=== PATIENT | female | born 1950 | race Caucasian/White ===

== ENCOUNTER 2023-10-02 03:47 | Inpatient (IN) | payer MEDICARE, BC, SELFPAY ==
[2023-10-02] VITALS (18 sets, daily range): BP systolic 107–232; BP diastolic 61–129; PULSE 70–108; RESP 12–22; TEMP 36.5–38.1; O2SAT 93–97; BMI 34.3; BMI 34.4
--- NOTE | 2023-10-02 03:37 | XR_ITS ---
PROCEDURE INFORMATION: Exam: XR Chest Exam date and time: 10/02/2023 3:43 AM Age: 73 years old Clinical indication: Injury or trauma; Fall; Additional info: Fall, weakness TECHNIQUE: Imaging protocol: Radiologic exam of the chest. Views: 1 view. COMPARISON: No relevant prior studies available. FINDINGS: Lungs: Unremarkable. No consolidation. Pleural spaces: Unremarkable. No pleural effusion. No pneumothorax. Heart/Mediastinum: Unremarkable. No cardiomegaly. Bones/joints: Unremarkable for age. IMPRESSION: Negative chest exam.
--- NOTE | 2023-10-02 03:37 | XR_ITS ---
PROCEDURE INFORMATION: Exam: XR Pelvis Exam date and time: 10/02/2023 3:43 AM Age: 73 years old Clinical indication: Injury or trauma; Fall; Additional info: Fall, weakness TECHNIQUE: Imaging protocol: Radiologic exam of the pelvis. Views: 1 or 2 view. COMPARISON: No relevant prior studies available. FINDINGS: Limitations: Study is limited due to patient positioning and body habitus. Bones/joints: Unremarkable. No fracture, malalignment or deformity detected. No significant degenerative joint changes. Soft tissues: Unremarkable. IMPRESSION: Limited study. No acute findings.
--- NOTE | 2023-10-02 03:37 | CT_ITS ---
PROCEDURE INFORMATION: Exam: CT Cervical Spine Without Contrast Exam date and time: 10/02/2023 3:57 AM Age: 73 years old Clinical indication: Injury or trauma; Fall; Additional info: Fall, weakness TECHNIQUE: Imaging protocol: Computed tomography of the cervical spine without contrast. Radiation optimization: All CT scans at this facility use at least one of these dose optimization techniques: automated exposure control; mA and/or kV adjustment per patient size (includes targeted exams where dose is matched to clinical indication); or iterative reconstruction. COMPARISON: CT HEAD/BRAIN WO CON 10/02/2023 3:54 AM FINDINGS: Bones/joints: No acute fracture. There is slight grade 1 anterolisthesis of C7 on T1. Otherwise gross anatomic alignment is maintained. There is multilevel advanced degenerative disc disease. There is severe spinal canal stenosis identified at C3-C4, C4-C5, C5-C6, and C6-C7 secondary to diffuse disc osteophyte ridging Lungs: Mild COPD changes are noted. Soft tissues: Unremarkable. IMPRESSION: 1. No evidence of acute fracture. 2. Multilevel severe spinal canal stenosis.
--- NOTE | 2023-10-02 03:37 | CT_ITS ---
PROCEDURE INFORMATION: Exam: CT Head Without Contrast Exam date and time: 10/02/2023 3:54 AM Age: 73 years old Clinical indication: Injury or trauma; Fall; Additional info: Fall, weakness TECHNIQUE: Imaging protocol: Computed tomography of the head without contrast. Radiation optimization: All CT scans at this facility use at least one of these dose optimization techniques: automated exposure control; mA and/or kV adjustment per patient size (includes targeted exams where dose is matched to clinical indication); or iterative reconstruction. COMPARISON: No relevant prior studies available. FINDINGS: Brain: There is mild small vessel disease. There is no evidence of acute parenchymal hemorrhage, extra-axial collection, or acute infarction. There is no mass effect, midline shift, or downward herniation. Cerebral ventricles: No ventriculomegaly. Paranasal sinuses: There is moderate paranasal sinus disease. Mastoid air cells: Visualized mastoid air cells are well aerated. Bones/joints: Unremarkable. No acute fracture. Soft tissues: Unremarkable. IMPRESSION: Mild small vessel disease. No evidence of acute intracranial process.
[2023-10-02 03:47] LABS: Basophils # 0.2 K/mm3 (0-0.2); Basophils % 2.5 % (0.1-2.0); Eosinophils # 0.2 K/mm3 (0.0-0.4); Eosinophils % 2.5 % (0.1-12.0); Hematocrit 42.4 % (37.0-47.0); Lymphocytes # 1.1 K/mm3 (0.7-4.5); Lymphocytes % 15.1 % (10-50); Mean Corpuscular HGB Conc 30.6 g/dL (31.8-35.4); Mean Corpuscular Hemoglobin 30.9 pg (27.0-31.2); Mean Corpuscular Volume 100.8 fl (81-99); Mean Platelet Volume 7.9 fl (7.4-10.4); Monocytes # 0.5 K/mm3 (0.1-1.0); Monocytes % 7.4 % (1.7-9.3); Neutrophils # 5.1 K/mm3 (1.8-7.8); Neutrophils % 72.4 % (37.0-80.0); Platelet Count 325 K/mm3 (142-424); Red Blood Count 4.21 M/mm3 (4.20-5.40); Red Cell Distribution Width 14.8 % (11.5-17.5); White Blood Count 7.1 K/mm3 (4.8-10.8)
--- NOTE | 2023-10-02 04:08 | ED_ITS ---
Discharge Plan Disposition Patient Disposition: Admitted Referrals Follow up/Referrals: Provider,Referral, [Primary Care Provider] - See instructions Clinical Impressions Clinical Impression: Influenza B, Fall, General weakness Discharge ED Provider: Marjorie Wilson General Adult HPI General Chief complaint: Weakness Stated complaint: weakness Time Seen by Provider: 10/02/23 03:53 Mode of Arrival: EMS Source of Information: Patient and EMS Limitations: Physical Limitations Description of Symptoms (Recalled from ER Triage Doc. by RN): Pt arrives to [facility] via [facility] after pts daughter called dispatch for pt not being able to get out of chair. Per EMS, they went to pts house for lift assist at 2am for a fall, when pt fell face first in hallway. Pt refused transfer to ED at that time. Per EMS pt has not left her house in over 1 year, and stopped taking all prescribed medications about 1 year ago. Pt reports recent productive cough with yellow sputum. Upon arrival pt appears unkept with foul odor. EMS reports poor living space. Legs red, dry/scaly, and edematous, excoriation noted in leg and abdominal folds. History of Present Illness HPI narrative: This patient is a 73-year-old female who has not left her house in over a year and has not seen a physician in 25 to 30 years presenting to the emergency department for evaluation with concern for generalized weakness. According to EMS, they were called to the patient's home for a mechanical ground-level fall that happened just after 2 AM. They lifted states that the patient, who refused transport to the hospital. Given this, they left the scene. Family called EMS back to the scene, as they noted that the patient was unable to get up out of her chair after that helped her into it. Family noted to EMS that they were not able to help take care of the patient at home anymore. Given this, EMS brought the patient in for further evaluation and management. Patient denies any concerns or complaints at this time except that she has to pee. EMS notes that the house is very unkempt with concerns for hoarding like situation. The patient also has chronic changes to her bilateral lower extremities with ulcers on her feet, left greater than right. Patient tells me that she had a fall but is feeling fine. She states that she did not hurt herself and she would like to go home. Related Data Allergies Allergy/AdvReac Type Severity Reaction Status Date / Time No Known Allergies Allergy Unverified 09/15/17 15:09 [facility] Disclaimer: The information contained in this section may have been updated after the patient was seen, as this information can be updated by other users. Social History Smoking Status: Never smoker alcohol intake: never current occupational status: previously employed Travel in the last 8 weeks: None ROS Obtained: Yes All systems reviewed & no additional complaints except as docu mented Physical Exam General General appearance: alert and in no apparent distress Comment: Unkempt, disheveled appearing Head Head exam: atraumatic and normocephalic Eye Eye exam: Present normal appearance, PERRL and EOMI ENT ENT exam: Present normal exam, normal oropharynx, mucous membranes moist and normal external ear exam Neck Neck exam: Present normal inspection, full ROM and trachea midline; Absent tenderness Chest Chest inspection: Present normal inspection and symmetric chest wall rise; Absent tenderness Respiratory Respiratory exam: Present normal lung sounds bilaterally; Absent respiratory distress, wheezes, stridor or accessory muscle use Cardiovascular Cardiovascular exam: Present normal rhythm and tachycardia Abdominal Exam Abdominal exam: Present soft; Absent distention, tenderness or guarding Extremities Exam Extremities exam: Present full ROM, normal capillary refill, edema and other (Bilateral lower extremity lymphedema with chronic skin changes to the bilateral legs. Ulcerations to the feet, with a large ulcer to the plantar aspect of the left foot as well as a skin tear to the lateral aspect of the left fifth toe. All compartments soft. No erythema, warmth, or pus noted); Absent tenderness Back Exam Back exam: Present normal inspection and full ROM; Absent tenderness Neurological Exam Neurological exam: Present alert, oriented X3, CN II-XII intact and normal gait; Absent motor sensory deficit Psychiatric Psychiatric exam: Present normal affect and normal mood Skin Skin exam: Present warm, dry and other (chronic changes to BLE as above) Medical Decision Making Medical Records Medical records reviewed: Yes I reviewed the patient's medical records. [place] Inquiry Pt receiving controlled substance: No Vital Signs: 10/02/23 03:36 Temperature 100.5 F H Temperature Source Oral Pulse Rate [Right Radial] 108 H Respiratory Rate 20 Blood Pressure [Right Arm] 160/109 H Blood Pressure Mean [Right Arm] 126 Blood Pressure Source [Right Arm] Automatic Cuff Blood Pressure Position [Right Arm] Supine 02 Sat by Pulse Oximetry 96 Oxygen Delivery Method Room Air Lab Data Lab results reviewed: Yes I reviewed the patient's lab results. Lab Results 10/02/23 03:39: WBC 7.1, RBC 4.21, Hgb 13.0, Hct 42.4, MCV 100.8 H, MCH 30.9, MCHC 30.6 L, RDW 14.8, Plt Count 325, MPV 7.9, Neut % (Auto) 72.4, Lymph % (Auto) 15.1, [place] % (Auto) 7.4, Eos % (Auto) 2.5, Baso % (Auto) 2.5 H, Neut # (Auto) 5.1, Lymph # (Auto) 1.1, [place] # (Auto) 0.5, Eos # (Auto) 0.2, Baso # (Auto) 0.2 10/02/23 04:05: SARS-CoV-2 (PCR) Not detected, Influenza A Untype (PCR) Not detected, Influenza Type B (PCR) Detected A 10/02/23 04:24: Urine Color Yellow, Urine Appearance Clear, Urine pH 6.5, Ur Specific [place] 1.020, Urine Protein 1+, Urine Glucose (UA) Negative, Urine Ketones Negative, Urine Blood 1+, Urine Nitrate Negative, Urine Bilirubin Negative, Urine Urobilinogen 0.2, Ur Leukocyte Esterase Negative, Urine RBC 5- 10, Urine WBC Occasional, Ur Squamous Epith Cells Occasional, Urine Bacteria Trace, Urine Opiates Screen Negative, Urine Methadone Screen Negative, Ur Barbituates Screen Negative, Ur Phencyclidine Scrn Negative, Ur Amphetamines Screen Negative, U Benzodiazepines Scrn Negative, Urine Cocaine Screen Negative, U Marijuana (THC) Screen Negative 10/02/23 04:30: Sodium 136, Potassium 4.0, Chloride 99, Carbon Dioxide 28, Anion Gap 13.0, BUN 14, Creatinine 1.00, Estimated Creat Clear 70, Estimated GFR 54 L, Est GFR ( Amer) 65, Glucose 112 H, Calcium 7.7 L, Phosphorus 2.7, Magnesium 1.8, Total Bilirubin 0.4, AST 38 H, ALT 19, Alkaline Phosphatase 135 H , Total Protein 9.2 H, Albumin 3.5, Globulin 5.7 H, Albumin/Globulin Ratio 0.6 L , TSH 0.32 L, Thyroxine (T4) 5.3 L 10/02/23 03:39 10/02/23 04:30 Orders (Tests/Meds): ED MEDICATIONS Discontinued Medications Generic Name Dose Route Start Last Admin Trade Name Cecy PRN Reason Stop Dose Admin Acetaminophen 1,000 mg 10/02/23 05:18 Acetaminophen 500mg Tab PO 10/02/23 05:19 ONCE ONE Ibuprofen 800 mg 10/02/23 05:18 Ibuprofen 400 Mg Tablet PO 10/02/23 05:19 ONCE ONE ORDERS Category Date Time Status CT cervical spine wo con Stat Cat Scan 10/02/23 03:[address] head/brain wo con Stat Cat Scan 10/02/23 03:37 Taken XR chest portable Stat Exams 10/02/23 03:37 Taken XR pelvis 1-2V Stat Exams 10/02/23 03:37 Taken Complete Blood Count Auto Diff Stat Lab 10/02/23 03:39 Completed Comprehensive Metabolic Panel Stat Lab 10/02/23 04:30 Completed Drug Screen,Urine Stat Lab 10/02/23 04:24 Completed Magnesium Stat Lab 10/02/23 04:30 Completed Phosphorous Stat Lab 10/02/23 04:30 Completed Rapid PCR Covid and Flu A/B Stat Lab 10/02/23 04:05 Completed T4 (Thyroxine) Stat Lab 10/02/23 04:30 Completed Thyroid Stimulating Hormone Stat Lab 10/02/23 04:30 Completed Urinalysis and Microscopic Stat Lab 10/02/23 04:24 Completed ECG Data Tracing #1: I reviewed this ECG and interpreted as documented below: Sinus tachycardia with a ventricular to 101 bpm. Significant motion artifact noted. No acute ST changes concerning for ischemia noted within the limitations of the study. ECG initial impression date: 10/02/23 ECG initial impression time: 04:11 Medical Decision Narrative: In summary, this patient is a 73-year-old female presenting to the Emergency Department for evaluation of generalized weakness and inability to stand after a mechanical ground-level fall that happened just 2 hours ago. Patient has not left her house in a year and lives in deplorable conditions. She has not had any medical care in 25 to 30 years. Differential diagnoses considered include but are not limited to head injury, neck injury, polytrauma, electrolyte derangements, anemia, urinary tract infection, viral syndrome. ruling out the most morbid conditions drove assessment. The patient has no concerns or complaints at this time. On exam, she is disheveled with chronic bilateral lower extremity skin changes and ulcerations. workup included broad lab evaluation including infectious and metabolic workup, CT head and C-spine, chest x-ray, and pelvic x-ray. Her legs do not appear overtly infected to me. I independently interpreted x-ray and CT prior to the radiologist read and noted this acute traumatic injury or other intracranial abnormality. Please see their read for final interpretation. Labs were obtained that demonstrated positive flu B swab. No other acute concerns based on labs. At this time, patient has general weakness and is unable to ambulate in the setting of flu B. She also has a concerning conditions. Given this, I feel she would benefit from admission for continued management. I called and had an interactive discussion with the hospitalist who graciously admitted the patient for further evaluation and management. Critical Care Critical Care Time Critical Care Time: No
[2023-10-02 04:09] LABS: Coronavirus 19, PCR Not Detected (NotDetected); Influenza A, PCR Not Detected (NotDetected)
--- NOTE | 2023-10-02 04:09 | ECG_ITS ---
APPROVED REPORT Exam: Resting ECG HR:101 bpm ECG Measurements Heart Rate 101 AXES WY 140 P 77 QRSd 93 QRS 89 QT 319 T -32 QTc 377 Conclusion SINUS TACHYCARDIA Bi-atrial abnormality ST/TW changes noted - however, artifact limits interpretation ABNORMAL ECG UNCONFIRMED REPORT Electronically signed by : Evelio Mares MD 10/03/2023 10:09:01
[2023-10-02 04:31] LABS: Microscopic, Urine URINE MICROSCOPIC (MICROSCOPIC)
[2023-10-02 04:34] LABS: Appearance,Urine CLEAR (Clear); Bilirubin,Urine Negative (Negative); Blood, Urine 1+ (Negative); Color,Urine YELLOW (Yellow); Glucose,Urine (UA) Negative (Negative); Ketones,Urine Negative (Negative); Leukocyte Esterase,Urine Negative (Negative); Nitrate,Urine Negative (Negative); PH,Urine 6.5 (5.0-8.5); Protein,Urine 1+ (Negative); Urobilinogen,Urine 0.2 EU/dl (0.2)
[2023-10-02 04:39] LABS: Influenza B, PCR Detected (NotDetected)
[2023-10-02 04:50] LABS: Amphetamine/Metha Screen,Urine Negative ng/ml (<1000); Barbiturates Screen,Urine Negative ng/ml (<200); Benzodiazepines Screen,Urine Negative ng/ml (<200); Cannabinoid Screen,Urine Negative ng/ml (<50); Cocaine Screen,Urine Negative ng/ml (<300); Methadone Screen,Urine Negative ng/ml (<300); Opiate Screen,Urine Negative ng/ml (<300); Phencyclidine Screen,Urine Negative ng/ml (<25)
[2023-10-02 04:52] LABS: Bacteria,Urine Trace /lpf; Squamous Epithelial Cell,Urine Occasional #/hpf (0-5); WBC,Urine Occasional #/hpf (0-3)
[2023-10-02 04:56] LABS: Chloride 99 mmol/L (98-107)
[2023-10-02 04:57] LABS: Sodium 136 mmol/L (136-145)
[2023-10-02 04:59] LABS: Alanine Aminotransferase 19 U/L (12-78); Albumin Level 3.5 g/dl (3.5-5.0); Albumin/Globulin Ratio 0.6 (1.1-1.8); Alkaline Phosphatase 135 U/L (38-126); Aspartate Amino Transferase 38 U/L (14-36); Bilirubin,Total 0.4 mg/dl (0.2-1.3); Blood Urea Nitrogen 14 mg/dl (7-17); Carbon Dioxide 28 mmol/L (22.0-30.0); Creatinine Clearance Estimated 70 mL/min (50-200); Estimated Glomerular Filt Rate 54 ml/min (>60); GFR (African American) 65 ML/MIN (>60); Globulin 5.7 g/dL (1.3-3.2); Magnesium 1.8 mg/dl (1.6-2.3); Phosphorous 2.7 mg/dl (2.5-4.5); Total Protein,Serum 9.2 g/dl (6.3-8.2)
[2023-10-02 05:00] LABS: Calcium 7.7 mg/dl (8.4-10.2); Glucose 112 mg/dl (74-100)
[2023-10-02 05:17] LABS: T4 (Thyroxine) 5.3 ug/dl (5.53-11.0)
--- NOTE | 2023-10-02 05:28 | PC.NURSE ---
a bed bug was found on the patient when she was being cathed for a urine sample, bed bug was collected in a specimen cup and sent to lab for confirmation. Patients clothes were then removed and placed into bags and placed outside of the ED.
--- NOTE | 2023-10-02 05:29 | PC.NURSE ---
ovens supervisor notified of admission for flu and generalized weakness. Pt to board in ED at this time.
[2023-10-02 05:31] LABS: Thyroid Stimulating Hormone 0.32 uIU/mL (0.465-4.68)
[2023-10-02] MEDS: ACETAMINOPHEN 500MG TAB 1000 MG PO (05:43)
[2023-10-02] MEDS: IBUPROFEN 400 MG TABLET 800 MG PO (05:43)
--- NOTE | 2023-10-02 05:48 | P.HP_ITS ---
History of Present Illness *Admission Date: 10/02/23 *Reason for visit:: fall, generalized weakness *History of present illness: This is a 73-year-old female with unknown medical history, apparently on no home medication, concerned poor medical care, brought to the emergency department fo r evaluation of generalized weakness and fall. Patient is poor historian and [place]. History obtained mainly for ED documentation and EMS report. According to EMS, they were called to the patient's home for a mechanical ground-level fall that happened just after 2 AM. They lifted states that the patient, who refused transport to the hospital. Given this, they left the scene. Family called EMS back to the scene, as they noted that the patient was unable to get up out of her chair after that helped her into it, and they were not able to help take care of the patient at home anymore. EMS notes that the house is very unkempt with concerns for hoarding like situation. The patient also has chronic lymphedema to her bilateral lower extremities with ulcers on her feet, left greater than right. She states that she did not hurt herself and she would like to go home. Admitted for further work up and management. [facility] Disclaimer: The information contained in this section may have been updated after the patient was seen, as this information can be updated by other users. Social History (Updated 10/02/23 @ 05:43 by Marjorie Wilson DO) Smoking Status: Never smoker alcohol intake: never current occupational status: previously employed Travel in the last 8 weeks: None Review of Systems Review of Systems Review of systems:: pertinent systems reviewed and negative unless documented below Meds Home Medications and Allergies New Prescriptions to Start Prescriptions: Allergies Allergy/AdvReac Type Severity Reaction Status Date / Time No Known Allergies Allergy Unverified 09/15/17 15:09 Exam Data for Last 24 hours Vital signs and Labs for Last 24 Hours: Temp Pulse Resp BP Pulse Ox O2 Del Method 100.5 F H 108 H 20 160/109 H 96 Room Air 10/02/23 03:36 10/02/23 03:36 10/02/23 03:36 10/02/23 03:36 10/02/23 03:36 10/02/23 03:36 Laboratory Results - last 24 hr 10/02/23 03:39: WBC 7.1, RBC 4.21, Hgb 13.0, Hct 42.4, MCV 100.8 H, MCH 30.9, MCHC 30.6 L, RDW 14.8, Plt Count 325, MPV 7.9, Neut % (Auto) 72.4, Lymph % (Auto) 15.1, [place] % (Auto) 7.4, Eos % (Auto) 2.5, Baso % (Auto) 2.5 H, Neut # (Auto) 5.1, Lymph # (Auto) 1.1, [place] # (Auto) 0.5, Eos # (Auto) 0.2, Baso # (Auto) 0.2 10/02/23 04:05: SARS-CoV-2 (PCR) Not detected, Influenza A Untype (PCR) Not detected, Influenza Type B (PCR) Detected A 10/02/23 04:24: Urine Color Yellow, Urine Appearance Clear, Urine pH 6.5, Ur Specific [place] 1.020, Urine Protein 1+, Urine Glucose (UA) Negative, Urine Ketones Negative, Urine Blood 1+, Urine Nitrate Negative, Urine Bilirubin Negative, Urine Urobilinogen 0.2, Ur Leukocyte Esterase Negative, Urine RBC 5- 10, Urine WBC Occasional, Ur Squamous Epith Cells Occasional, Urine Bacteria Trace, Urine Opiates Screen Negative, Urine Methadone Screen Negative, Ur Barbituates Screen Negative, Ur Phencyclidine Scrn Negative, Ur Amphetamines Screen Negative, U Benzodiazepines Scrn Negative, Urine Cocaine Screen Negative, U Marijuana (THC) Screen Negative 10/02/23 04:30: Sodium 136, Potassium 4.0, Chloride 99, Carbon Dioxide 28, Anion Gap 13.0, BUN 14, Creatinine 1.00, Estimated Creat Clear 70, Estimated GFR 54 L, Est GFR ( Amer) 65, Glucose 112 H, Calcium 7.7 L, Phosphorus 2.7, Magnesium 1.8, Total Bilirubin 0.4, AST 38 H, ALT 19, Alkaline Phosphatase 135 H , Total Protein 9.2 H, Albumin 3.5, Globulin 5.7 H, Albumin/Globulin Ratio 0.6 L , TSH 0.32 L, Thyroxine (T4) 5.3 L I & O for Last 24 hours: Intake & Output 09/29/23 09/30/23 10/01/23 10/02/23 23:59 23:59 23:59 23:59 Weight 90.718 kg Constitutional Constitutional: mild distress and cooperative *Routine HEENT Exam Head: Present normocephalic and atraumatic Eye: Present EOMI, PERRL and normal accommodation ENT: Present mucous membranes moist *Routine Neck Exam Neck: Present supple, full ROM and trachea midline *Routine Respiratory Exam Respiratory: Present normal respiratory effort, able to speak in complete sentences and symmetric chest movement; Absent respiratory distress *Routine Cardiovascular Exam Cardiovascular: Present RRR, Normal S1, Normal S2 and tachycardia *Routine Abdominal Exam Abdominal: Present soft and normoactive bowel sounds; Absent organomegaly *Routine Rectal Exam Rectal:: deferred *Routine Genitalia Exam Genitalia:: deferred *Routine Extremities Exam Extremities: Present edema, pulses intact and extremity cold to touch; Absent full ROM Comments: chronic lymphedema *Routine Skin Exam Skin: Present erythema, dry, warm, wounds and rash *Routine Neurological Exam Neurological: Present alert, motor deficit, normal reflexes, moving all extremities and normal speech Routine Psychiatric Exam Psychiatric: Present unable to assess H&P: Result Imaging and Cardiology EKG: Status: image reviewed by me and final report CT scan - head: Status: image reviewed by me, Preliminary report and final report Chest x-ray: Status: image reviewed by me and Preliminary report Pelvis xray : Status: image reviewed by me and Preliminary report Assessment and Plan *Assessment and plan (1) Influenza B: Status: Acute Category: Medical Code(s): J10.1 - Influenza due to other identified influenza virus with other respiratory manifestations (2) Fall: Status: Acute Qualifiers: Encounter type: initial encounter Qualified Code(s): W19.XXXA - Unspecified fall, initial encounter Category: Medical Code(s): W19.XXXA - Unspecified fall, initial encounter (3) General weakness: Status: Acute Category: Medical Code(s): R53.1 - Weakness (4) Lymphedema: Status: Acute Category: Medical Code(s): I89.0 - Lymphedema, not elsewhere classified (5) Unable to care for self: Status: Acute Category: Medical Code(s): Z78.9 - Other specified health status Plan 3-year-old female with unknown medical history, apparently on no home medication, concerned poor medical care, brought to the emergency department for evaluation of generalized weakness and fall. On arrival, CT of the head was obtained, there is negative for acute intracranial process, CTA of the cervical spine showing, with stenosis. Pelvic x-ray and chest x-ray pending for final radiology report. Labs are unremarkable. Patient found to be positive to influenza B. Currently asymptomatic. findings discussed with the ER. I agree for admission. Plan: -Generalized weakness, expected post for home no apparent injury: Admit patient for medical services. Start continuous monitoring Vital signs per unit protocol PT OT consult. For eval and treat No family available at bedside at this moment. Nursing to contact family for reconcile home meds if there are any Watch and repeat morning labs. Watch for electrolyte imbalance -Influenza B: Currently asymptomatic Monitor for fever and sepsis Negative for O2 saturation -Chronic bilateral lower extremity lymphedema : Wound care consult Assess for lymphedema wrap and lac-hydrin -unable to care for herself: general store manager consult. Assist with discharge plan Lovenox for DVT prophylaxis. Protonix Full code
--- NOTE | 2023-10-02 06:13 | PC.NURSE ---
Pt put in hospital bed at this time. Pt turned on left side, no other needs at this time
[2023-10-02] MEDS: 0.9 % SODIUM CHLORIDE 1000ML 1,000 ML 50 ML IV (06:17)
--- NOTE | 2023-10-02 06:33 | PC.NURSE ---
Multiple skin issues noted. Bilat legs red, scaly edematous. Excoriation noted to abdominal and leg folds. Stage 2 pressure wound noted to right buttock. Ulcer noted to bottom of left foot.
--- NOTE | 2023-10-02 07:31 | PC.NURSE ---
ROUNDED ON PT. RESTING WITH EYES CLOSED. AWAKENS EASILY. DENIES NEEDS AT THIS TIME. CALL LIGHT WITHIN REACH. RESPIRATIONS EVEN AND UNLABORED
--- NOTE | 2023-10-02 08:39 | PC.NURSE ---
ROUNDED ON PT. NO NEEDS AT THIS TIME. CALL LIGHT WITHIN REACH
--- NOTE | 2023-10-02 08:59 | PC.NURSE ---
PT/OT AT BEDSIDE FOR EVALUATION
--- NOTE | 2023-10-02 09:33 | SW/DCPLANNER ---
Addendum entered by [facility] 10/05/23 12:12: Lalit w/ [facility] stated that services will start this week for this patient. Addendum entered by [facility] 10/05/23 11:48: Daughter confirmed that [facility] is fine for this patient and follow up w/ Dr Ortiz. Patient's daughter is also fine w/ using [facility] for DME. Addendum entered by [facility] 10/05/23 09:30: Daughter is fine w/ [facility]. Daughter has also requested a bedside commode and a rolling walker. Addendum entered by [facility] 10/05/23 09:23: I spoke w/ patient's daughter regarding discharge plans. Daughter stated that the plan for this patient is to discharge home w/ her son (Priyank) and home health services. Patient/family are no longer interested in placement at this time. I have updated MD. Patient will discharge home this afternoon. Addendum entered by [facility] 10/02/23 14:43: Gifty w/ [facility] stated that she is able to accept this patient but not till Thursday due to being flu positive. [facility] is still reviewing referral. Addendum entered by [facility] 10/02/23 12:43: Patient's daughter is agreeable for information to be faxed to [facility] at this time. Original Note: I received a consult on this patient regarding plans once medically stable for discharge. PT/OT evaluated patient and recommended SNF level of care. I spoke w/ patient and her daughter (patient is very hard of hearing) regarding situation. Daughter stated that prior to late last night when patient fell she was doing well at home. Daughter stated that since fall patient is unable to ambulate on her own. I discussed w/ daughter the options of SNF (if patient has a qualifying stay) or LTC under Medicaid. Daughter did become emotional during conversation due to struggling financially and if going Medicaid patient payment will be monthly include aside from $40. Daughter requested additional time to speak w/ other family members regarding situation. I informed daughter I would be back around lunch to further discuss discharge plans. I also informed daughter that patient does have to be agreeable to placement.
--- NOTE | 2023-10-02 09:55 | HMH.PTEV ---
Physical Therapy Evaluation Rehab PT IP Evaluation Start: 10/02/23 05:47 Freq: ONCE Status: Active Protocol: Document 10/02/23 09:41 JAQUAN (Rec: 10/02/23 09:53 JAQUAN [id number]) Subjective/History History History Patient is a 73 year old female presenting to [facility] ED secondary to generalized weakness resulting in a mechanical fall at home. Patient reports R shoulder pain. Patient reports that she was previously ambulatory about the home and independent with IADL's. Suspect possible poor living conditions per ED/EMS documentation. Severe BLE swelling/lymphedema L>R. Patient to have CLT/CWS consult. Patient has not been seen by primary care or taken any medications over the past year per ED MD report. Patient currently positive for flu. Subjective Subjective I fell and my right shoulder hurts. New diagnosis of cancer in past 12 No months? Rehab PT IP Eval Objective Appearance Patient Behavior Appropriate,Cooperative Patient Orientation Person,Place,Birthday Difficulty following instructions none Speech Pattern Clear,Appropriate Ambulation Patient Able to Ambulate Yes Ambulation Observation IP General Gait Pattern Observation Wide Based Gait Ambulation Distance (feet) 5 Ambulation Assistive Device Rolling Walker Ambulation Ability Minimal x 2 (25% assist) Balance Ability to Arise Unable Sitting Balance Leans or slides in chair Standing Balance Steady, wide stance Dynamic Sitting Balance Ability Fair Dynamic Standing Balance Ability Fair Transfers Bed Transfer Ability Minimal x 2 (25% assist) Sit to Stand Bed Transfer Ability Minimal x 2 (25% assist) Pain Right Shoulder Pain Intensity 5 ROM All Extremities PT ROM Status WFL MMT All Extremities PT MMT WFL Rehab PT IP prob,goals,plan Problems Date of Evaluation: 10/02/23 PT IP Problems Bed Mobility,Transfers,Gait, Balance,Self care,Safety Rehab Potential Rehab Potential Good Equipment Needs Assistive Devices Rolling / Wheeled Walker Plan PT Intervention Plan Bed Mobility,Transfers,Gait, Balance,Self care,Safety, Therapeutic Exercise PT Plan Frequency BID Duration LOS Discharge Goals Bed Transfer Ability Minimal x 1 (25% assist) Sit to Stand Chair Transfer Ability Minimal x 1 (25% assist) Ambulation Assistive Device Rolling Walker Ambulation Distance (feet) 20 Discharge Plan PT Discharge Plan PT suggests, once found medically stable by MD, patient should DC to SNF for further observation and to continue with rehab. Eval Complexity Eval Charge Codes 97342 - High Complexity PHYSICIAN CERTIFICATION: I certify the specified therapy services for Pushpa Sol Schneider are required, authorized, and reviewed every 30 days.
[2023-10-02] MEDS: PANTOPRAZOLE 40MG TABLET 40 MG PO (09:59)
[2023-10-02] MEDS: ENOXAPARIN 40MG/0.4ML SYRINGE 40 MG SQ (09:59)
--- NOTE | 2023-10-02 10:20 | PC.NURSE ---
WOUND CARE AT BEDSIDE
--- NOTE | 2023-10-02 10:30 | HMH.OTEV ---
OT Inpatient Evaluation Rehab OT IP Evaluation Start: 10/02/23 05:47 Freq: ONCE Status: Active Protocol: Document 10/02/23 10:14 FRED (Rec: 10/02/23 10:30 FRED [id number]) Rehab OT IP Assessment Subjective History This is a 73-year-old female with unknown medical history, apparently on no home medication, concerned poor medical care, brought to the emergency department for evaluation of generalized weakness and fall. Patient is poor historian and [place]. History obtained mainly for ED documentation and EMS report. According to EMS, they were called to the patient's home for a mechanical ground-level fall that happened just after 2 AM. They lifted states that the patient, who refused transport to the hospital. Given this, they left the scene. Family called EMS back to the scene, as they noted that the patient was unable to get up out of her chair after that helped her into it, and they were not able to help take care of the patient at home anymore. EMS notes that the house is very unkempt with concerns for hoarding like situation. The patient also has chronic lymphedema to her bilateral lower extremities with ulcers on her feet, left greater than right. She states that she did not hurt herself and she would like to go home . Admitted for further work up and management. Per nursing, Patient lives at home with daughter. Patient has not seen health care provided in years nor has taken home medication >1 year. Hx of falling. Per nuring family reported that daughter can no longer provide for her due to weakness. Subjective I can get up. Instructed Patient on proper hand and foot placement to participate in bed mobility from supine->sit @ EOB->stand- >ambulates 2-3 steps with needing Min A with usage of RW . Patient demonstrated fair+ dynamic standing balance. Assisted Patient back in bed due to incontinent episodes. Objective Patient Orientation Person,Place,Name,Age,Birthday ,Year Right Upper Extremity Gross ROM WFL Left Upper Extremity Gross ROM WFL Bed Mobility bed mobility - supine/sit Assist Level Minimal x 1 (25% assist) Transfer Training Sit/Stand Transfer,Sit/Stand/ Step Transfer Assist Level Minimal x 1 (25% assist) Chair Transfer Ability Minimal x 1 (25% assist) Chair Transfer Technique Sit to/from Ambulatory Chair Transfer Assistive Devices Rolling Walker Rehab OT IP prob,goals,plan Problems Date of Evaluation: 10/02/23 OT IP Problems Bed Mobility,Transfers,Balance ,Self care,Safety Rehab Potential Rehab Potential Good Equipment Needs Assistive Devices Rolling / Wheeled Walker Plan OT intervention Plan Bed Mobility,Transfers,Balance ,Self care,Safety,Therapeutic Exercise OT Plan Frequency Daily Duration LOS Discharge Goals Bed Mobility Ability Assistance x1 Sit to Stand Chair Transfer Ability Minimal x 1 (25% assist) Chair Transfer Ability Minimal x 1 (25% assist) Chair Transfer Technique Sit to/from Ambulatory Chair Transfer Assistive Devices Rolling Walker Discharge Plan OT Discharge Plan Due to health condition and family members unable to continue to provide care for patient , recommend placement at this time. Patient will required 20/04 care for ADL, wound care and fx'l mobility. Will continue to see patient at [facility]. Eval Complexity Eval Charge Codes 24575 - Low Complexity PHYSICIAN CERTIFICATION: I certify the specified therapy services for Pushpa Schneider are required, authorized, and reviewed every 30 days.
--- NOTE | 2023-10-02 11:16 | HMH.PTWOUND ---
Rehab Inpt Wound Evaluation Rehab IP Wound Evaluation Start: 10/02/23 07:34 Freq: ONCE Status: Active Protocol: Document 10/02/23 11:07 GWENDOLYN (Rec: 10/02/23 11:16 PHONADYA [id number]) Rehab PT Wound Assessment Subjective Subjective 73 yowf brought to ED via EMS after fall at home. She has hx of underlying B LE chronic lymphedema, L worse than R. Several areas of excoriation noted to the L LE this date with considerable dry skin and hyperkeratosis noted. Wound Left Lower Leg Wound Type Stasis Ulcer Is This a Chronic Wound Yes Wound Length (cm) 3.0 Wound Width (cm) 0.5 Wound Depth (cm) 0.1 Wound Bed Appearance [place] Wound Margins Description Indistinct Surrounding Tissue Appearance [place],Bright Red Edema Type Pitting Edema Degree 2+ Query Text:1+ Trace, Barely Detectable, Rebound 15-30 seconds 2+ Moderate, Slight Indentation, Rebound 10-20 seconds 3+ Deep, Deeper Indentation, Rebound > 30 seconds 4+ Very Deep, Rebound > 60 seconds Wound Drainage Description Sanguineous Drainage Amount Scant Dressing Status Open to Air Wound Topical Solution/Irrigant Saline Irrigant Primary Dressing Unna Boot Comment 2 layer calamine compression wrap system Wound Debridement Method Gauze,Mechanical Wound Debridement Amount of Tissue Minimal Removed Dressing Change Patient Tolerance Tolerated Well Plan/Recommendation Comment Current dressing may remain in place for at least 3-4 days without being disturbed. [facility] staff to monitor dressing only and no dressing changes needed unless current dressing is required to be removed. Eval Complexity Eval Charge Codes 89257 - High Complexity PHYSICIAN CERTIFICATION: I certify the specified therapy services for Pushpa Schneider are required, authorized, and reviewed every 30 days.
--- NOTE | 2023-10-02 11:33 | PC.NURSE ---
PT RESTING IN BED, FAMILY AT BEDSIDE. NO NEEDS AT THIS TIME
--- NOTE | 2023-10-02 11:38 | PC.NURSE ---
Notified house that pt's room was ready, pt's RN has called for report and tech notified that patient is ready to come up.
--- NOTE | 2023-10-02 11:43 | PC.NURSE ---
REPORT GIVEN TO MARCO SAMUELS
--- NOTE | 2023-10-02 11:56 | PC.NURSE ---
arrived to floor by bed from ED
--- NOTE | 2023-10-02 12:41 | HMH.PHAINT1 ---
Pharmacy Intervention Comments: Spoke with patient at bedside, patient confirm no maintenance medications at home prior to admission and only takes Tylenol as needed.
--- NOTE | 2023-10-02 15:02 | PC.WOUNDNOTE ---
STAGE 2 AND REDNESS NOTED TO THE BUTTOCKS
[2023-10-03] VITALS: BP 145/87; PULSE 76; RESP 16; TEMP 37.1; O2SAT 95
[2023-10-03 04:00] VITALS: BP 155/84; PULSE 77; RESP 16; TEMP 37.2; O2SAT 95; BMI 33.9
[2023-10-03 07:01] LABS: Alanine Aminotransferase 19 U/L (12-78); Albumin/Globulin Ratio 0.6 (1.1-1.8); Alkaline Phosphatase 100 U/L (38-126); Aspartate Amino Transferase 44 U/L (14-36); Bilirubin,Total 0.2 mg/dl (0.2-1.3); Blood Urea Nitrogen 18 mg/dl (7-17); Calcium 7.4 mg/dl (8.4-10.2); Carbon Dioxide 31 mmol/L (22.0-30.0); Chloride 105 mmol/L (98-107); Creatinine Clearance Estimated 46 mL/min (50-200); Estimated Glomerular Filt Rate 34 ml/min (>60); GFR (African American) 41 ML/MIN (>60); Glucose 96 mg/dl (74-100); Sodium 137 mmol/L (136-145)
[2023-10-03 07:11] LABS: Basophils % 0.5 % (0.1-2.0); Eosinophils # 0.2 K/mm3 (0.0-0.4); Eosinophils % 5.3 % (0.1-12.0); Hemoglobin 12.9 g/dL (12.2-16.2); Lymphocytes # 0.7 K/mm3 (0.7-4.5); Lymphocytes % 16.9 % (10-50); Mean Corpuscular HGB Conc 30.7 g/dL (31.8-35.4); Mean Corpuscular Hemoglobin 30.5 pg (27.0-31.2); Mean Corpuscular Volume 99.4 fl (81-99); Mean Platelet Volume 7.5 fl (7.4-10.4); Monocytes # 0.3 K/mm3 (0.1-1.0); Monocytes % 6.9 % (1.7-9.3); Neutrophils # 2.7 K/mm3 (1.8-7.8); Neutrophils % 70.3 % (37.0-80.0); Platelet Count 282 K/mm3 (142-424); Red Blood Count 4.22 M/mm3 (4.20-5.40); Red Cell Distribution Width 14.6 % (11.5-17.5); White Blood Count 3.9 K/mm3 (4.8-10.8)
[2023-10-03 08:00] VITALS: BP 160/72; PULSE 80; RESP 18; TEMP 36.9; O2SAT 93
[2023-10-03] MEDS: ENOXAPARIN 40MG/0.4ML SYRINGE 40 MG SQ (09:04)
[2023-10-03] MEDS: PANTOPRAZOLE 40MG TABLET 40 MG PO (09:04)
--- NOTE | 2023-10-03 09:17 | XR_ITS ---
PROCEDURE INFORMATION: Exam: XR Right Shoulder Exam date and time: 10/03/2023 9:53 AM Age: 73 years old Clinical indication: Numbness; Arm, upper; Right; Additional info: Pain TECHNIQUE: Imaging protocol: Radiologic exam of the right shoulder. Views: 1 view. Total images: 1 COMPARISON: CR XR HUMERUS RT 10/03/2023 9:53 AM FINDINGS: Bones/joints: Degenerative changes of the glenohumeral and acromioclavicular joints. No evidence of acute fracture or dislocation. Soft tissues: Soft tissues are within normal limits. IMPRESSION: 1. Degenerative changes of the glenohumeral and acromioclavicular joints. 2. No evidence of acute fracture or dislocation.
--- NOTE | 2023-10-03 09:17 | XR_ITS ---
PROCEDURE INFORMATION: Exam: XR Right Humerus Exam date and time: 10/03/2023 9:53 AM Age: 73 years old Clinical indication: Numbness; Arm, upper; Right; Additional info: Pain TECHNIQUE: Imaging protocol: Radiologic exam of the right humerus. Views: 2 or more views. Total images: 2 COMPARISON: CR XR SHOULDER RT 1V 10/03/2023 9:53 AM FINDINGS: Bones/joints: Degenerative changes of the glenohumeral and acromioclavicular joints. No evidence of acute fracture or dislocation. Soft tissues: Soft tissues are within normal limits. IMPRESSION: 1. Degenerative changes of the glenohumeral and acromioclavicular joints. 2. No evidence of acute fracture or dislocation.
--- NOTE | 2023-10-03 15:22 | EXP.PN ---
Subjective *Date: 10/03/23 *Time: 15:22 Interval history: patient was seen and evaluated at the bedside. No reported acute events overnight, denies chest pain, shortness of breath, nausea, vomiting, abdominal pain. Exam Data for Last 24 hours Vital signs and Labs for Last 24 Hours: Temp Pulse Resp BP Pulse Ox O2 Del Method O2 Flow Rate 98.4 F 80 18 160/72 H 93 L Room Air 3 10/03/23 08:00 10/03/23 08:00 10/03/23 08:00 10/03/23 08:00 10/03/23 08:00 10/03/23 15:00 10/03/23 09:00 Laboratory Results - last 24 hr 10/03/23 06:26: WBC 3.9 L D, RBC 4.22, Hgb 12.9, Hct 42.0, MCV 99.4 H, MCH 30.5, MCHC 30.7 L, RDW 14.6, Plt Count 282, MPV 7.5, Neut % (Auto) 70.3, Lymph % (Auto) 16.9, [place] % (Auto) 6.9, Eos % (Auto) 5.3, Baso % (Auto) 0.5, Neut # (Auto) 2.7, Lymph # (Auto) 0.7, [place] # (Auto) 0.3, Eos # (Auto) 0.2, Baso # (Auto) 0.0, Sodium 137, Potassium 4.0, Chloride 105, Carbon Dioxide 31 H, Anion Gap 5.0, BUN 18 H D, Creatinine 1.50 H D, Estimated Creat Clear 46, Estimated GFR 34 L, Est GFR ( Amer) 41 L D, Glucose 96, Calcium 7.4 L, Magnesium 2.0 D, Total Bilirubin 0.2, AST 44 H, ALT 19, Alkaline Phosphatase 100, Total Protein 8.0, Albumin 3.0 L D, Globulin 5.0 H, Albumin/Globulin Ratio 0.6 L I & O for Last 24 hours: Intake & Output 09/30/23 10/01/23 10/02/23 10/03/23 23:59 23:59 23:59 23:59 Intake Total 480 / 720 960 / 960 Output Total 350 / 350 600 / 600 Balance 130 / 370 360 / 360 Weight 90.86 kg 90.174 kg Constitutional Constitutional: no acute distress *Routine HEENT Exam Head: Present normocephalic Eye: Present EOMI and PERRL ENT: Present mucous membranes moist *Routine Neck Exam Neck: Present supple; Absent lymphadenopathy *Routine Respiratory Exam Respiratory: Present CTA bilaterally *Routine Cardiovascular Exam Cardiovascular: Present RRR *Routine Abdominal Exam Abdominal: Present soft and normoactive bowel sounds; Absent tenderness *Routine Extremities Exam Extremities: Absent cyanosis, clubbing or edema *Routine Skin Exam Skin: Present warm; Absent rash *Routine Neurological Exam Neurological: Present alert and oriented X3 Assessment and Plan *Assessment and plan (1) Influenza B: Status: Acute Category: Medical Code(s): J10.1 - Influenza due to other identified influenza virus with other respiratory manifestations (2) Fall: Status: Acute Qualifiers: Encounter type: initial encounter Qualified Code(s): W19.XXXA - Unspecified fall, initial encounter Category: Medical Code(s): W19.XXXA - Unspecified fall, initial encounter (3) General weakness: Status: Acute Category: Medical Code(s): R53.1 - Weakness (4) Lymphedema: Status: Acute Category: Medical Code(s): I89.0 - Lymphedema, not elsewhere classified (5) Unable to care for self: Status: Acute Category: Medical Code(s): Z78.9 - Other specified health status Plan 3-year-old female with unknown medical history, apparently on no home medication, concerned poor medical care, brought to the emergency department for evaluation of generalized weakness and fall. On arrival, CT of the head was obtained, there is negative for acute intracranial process, CTA of the cervical spine showing, with stenosis. Pelvic x-ray and chest x-ray pending for final radiology report. Labs are unremarkable. Patient found to be positive to influenza B. Currently asymptomatic. findings discussed with the ER. I agree for admission. Plan: -Generalized weakness Start continuous monitoring Vital signs per unit protocol PT OT consult. For eval and treat No family available at bedside at this moment. Nursing to contact family for reconcile home meds if there are any Watch and repeat morning labs. Watch for electrolyte imbalance HAI - gentle IV fluid therapy -Influenza B: Currently asymptomatic Monitor for fever and sepsis Negative for O2 saturation -Chronic bilateral lower extremity lymphedema : Wound care consult Assess for lymphedema wrap and lac-hydrin -unable to care for herself: environmental services project manager consult. Assist with discharge plan Heparin for DVT prophylaxis. Protonix Full code
[2023-10-03 15:45] VITALS: BP 160/77; PULSE 78; RESP 18; TEMP 36.8; O2SAT 92
[2023-10-03] MEDS: 0.9 % SODIUM CHLORIDE 1000ML 1,000 ML 75 ML IV (16:38)
--- NOTE | 2023-10-03 17:05 | PC.NURSE ---
PT IS RESTING IN BED WITH FAMILY AT BEDSIDE. ALERT AND ORIENTED X3. PT IS VERY [place]. PT HAS BEEN COMPLAINING OF SOME NUMBNESS AND PAIN IN HER RIGHT ARM. PT STATES SHE THOUGHT IT WAS B/C SHE P FELL ON IT. PT IS ABLE TO MOVE RIGHT SHOULDER BUT UNABLE TO LIFT RIGHT ARM INDEPENDENTLY. ASSESSED WITH HOSPITALIST AT BEDSIDE. SWELLING NOTED TO BLE. UNNA BOOT NOTED TO THE LLE. SCATTERED ABRASIONS NOTED. STAGE 2 AND REDNESS NOTED TO BUTTOCKS. REDNESS NOTED TO LEFT ABDOMINAL FOLD. WILL CONTINUE TO MONITOR.
[2023-10-03 20:00] VITALS: BP 146/75; PULSE 87; RESP 17; TEMP 36.8; O2SAT 94
[2023-10-03] MEDS: HEPARIN SODIUM 5,000 UNIT/ML VIAL 5000 UNIT SQ (20:31)
--- NOTE | 2023-10-04 03:08 | PC.NURSE ---
RESTING IN BED. NO RESP DISTRESS. NO COUGH NOTED. NO COMPLAINTS VOICED. PUREWICK IN USE, URINE DALIA COLOR. REMAINS IN DROPLET/CONTACT PRECAUTIONS FOR FLU B.
[2023-10-04 04:00] VITALS: BP 152/81; PULSE 76; RESP 17; TEMP 36.8; O2SAT 92; BMI 33.9
[2023-10-04] MEDS: 0.9 % SODIUM CHLORIDE 1000ML 1,000 ML 75 ML IV (04:48)
[2023-10-04 08:00] VITALS: BP 168/99; PULSE 82; RESP 20; TEMP 36.7; O2SAT 94
[2023-10-04] MEDS: HEPARIN SODIUM 5,000 UNIT/ML VIAL 5000 UNIT SQ ×2 (08:48→21:16)
[2023-10-04] MEDS: PANTOPRAZOLE 40MG TABLET 40 MG PO (08:49)
[2023-10-04] MEDS: ACETAMINOPHEN 325MG TAB 650 MG PO (08:53)
--- NOTE | 2023-10-04 10:59 | CT_ITS ---
PROCEDURE INFORMATION: Exam: CT Head Without Contrast Exam date and time: 10/04/2023 12:46 PM Age: 73 years old Clinical indication: Weakness, extremity; Additional info: CVA TECHNIQUE: Imaging protocol: Computed tomography of the head without contrast. Total images: 273 Radiation optimization: All CT scans at this facility use at least one of these dose optimization techniques: automated exposure control; mA and/or kV adjustment per patient size (includes targeted exams where dose is matched to clinical indication); or iterative reconstruction. COMPARISON: CT HEAD/BRAIN WO CON 10/02/2023 3:54 AM FINDINGS: Brain: Age-related atrophy and chronic white matter ischemic changes, with no evidence of an acute intracranial abnormality. No hemorrhage, mass effect or midline shift. Cerebral ventricles: No ventriculomegaly. Paranasal sinuses: Bilateral maxillary sinusitis. Ethmoid sinusitis and sphenoid sinusitis present. Mastoid air cells: Visualized mastoid air cells are well aerated. Bones/joints: No acute fracture. Soft tissues: No acute changes IMPRESSION: 1. Age-related atrophy and chronic white matter ischemic changes, with no evidence of an acute intracranial abnormality. 2. No hemorrhage, mass effect or midline shift. 3. Bilateral maxillary sinusitis. 4. Ethmoid sinusitis and sphenoid sinusitis present.
--- NOTE | 2023-10-04 10:59 | CT_ITS ---
PROCEDURE INFORMATION: Exam: CTA Head With Contrast, Venography Exam date and time: 10/04/2023 12:49 PM Age: 73 years old Clinical indication: Paralysis, transient of limb; Additional info: CVA TECHNIQUE: Imaging protocol: Computed tomography angiography of the head with contrast. Exam focused on the veins. 3D rendering (Not supervised by radiologist): MIP and/or 3D reconstructed images were created by the technologist. Radiation optimization: All CT scans at this facility use at least one of these dose optimization techniques: automated exposure control; mA and/or kV adjustment per patient size (includes targeted exams where dose is matched to clinical indication); or iterative reconstruction. Contrast material: ISOVUE; Contrast volume: 100 ml; Contrast route: INTRAVENOUS (IV); COMPARISON: CT HEAD/BRAIN WO CON 10/04/2023 12:46 PM FINDINGS: Superior sagittal sinus: Patent. Straight sinus: Patent. Transverse sinuses: Patent. Sigmoid sinuses: Patent. Internal jugular veins: Limited visualized internal jugular veins are patent. POSTERIOR CIRCULATION: Left vertebral artery: Hypoplastic left vertebral artery V4 segment, normal congenital variant anatomy. No abrupt vessel cutoff. No aneurysm or significant stenosis. Basilar artery: Unremarkable. Brain: No definite mass, mass effect, or midline shift. Cerebral ventricles: No ventriculomegaly. Paranasal sinuses: Diffuse mucosal thickening throughout the paranasal sinuses with air-fluid level in the right maxillary sinus compatible with sinusitis. Soft tissues: Unremarkable. IMPRESSION: No evidence of critical stenosis, occlusion, or aneurysm in the intracranial cerebral arteries. PROCEDURE INFORMATION: Exam: CT Maxillofacial With Contrast Exam date and time: 10/04/2023 12:49 PM Age: 73 years old Clinical indication: Paralysis, transient of limb; Additional info: CVA TECHNIQUE: Imaging protocol: Computed tomography of the face with contrast. COMPARISON: CT HEAD/BRAIN WO CON 10/04/2023 12:46 PM FINDINGS: Orbital cavities: Orbits are normal. Globes are unremarkable. Bones/joints: No evidence of acute fracture. Bilateral temporomandibular joints are congruent. Pterygoid plates are intact. Paranasal sinuses: Diffuse mucosal thickening throughout the paranasal sinuses and air-fluid level in the right maxillary sinus compatible with sinusitis. Soft tissues: Unremarkable. IMPRESSION: Diffuse mucosal thickening throughout the paranasal sinuses with air-fluid level in the right maxillary sinus compatible with sinusitis.
[2023-10-04 11:16] VITALS: BP 147/86; PULSE 81; RESP 18; TEMP 36.7; O2SAT 93
[2023-10-04] MEDS: ASPIRIN EC 81MG TABLET 81 MG PO (11:51)
[2023-10-04] MEDS: 0.9 % SODIUM CHLORIDE 1000ML 250 ML 200 ML IV (14:02)
--- NOTE | 2023-10-04 15:03 | P.PN_ITS ---
Subjective *Date: 10/04/23 *Time: 15:03 Interval history: patient was seen and evaluated at the bedside. No reported acute events overnight, denies chest pain, shortness of breath, nausea, vomiting, abdominal pain. she has weakness in Left arm Exam Data for Last 24 hours Vital signs and Labs for Last 24 Hours: Temp Pulse Resp BP Pulse Ox O2 Del Method O2 Flow Rate 98.0 F 81 18 147/86 H 93 L Room Air 3 10/04/23 11:16 10/04/23 11:16 10/04/23 11:16 10/04/23 11:16 10/04/23 11:16 10/04/23 14:45 10/03/23 09:00 I & O for Last 24 hours: Intake & Output 10/01/23 10/02/23 10/03/23 10/04/23 23:59 23:59 23:59 23:59 Intake Total 480 / 720 1200 / 1761 1341 / 1341 Output Total 350 / 350 1700 / 1800 900 / 900 Balance 130 / 370 -500 / -39 441 / 441 Weight 90.86 kg 90.174 kg 90.175 kg Constitutional Constitutional: no acute distress *Routine HEENT Exam Head: Present normocephalic Eye: Present EOMI and PERRL ENT: Present mucous membranes moist *Routine Neck Exam Neck: Present supple; Absent lymphadenopathy *Routine Respiratory Exam Respiratory: Present CTA bilaterally *Routine Cardiovascular Exam Cardiovascular: Present RRR *Routine Abdominal Exam Abdominal: Present soft and normoactive bowel sounds; Absent tenderness *Routine Extremities Exam Extremities: Absent cyanosis, clubbing or edema *Routine Skin Exam Skin: Present warm; Absent rash *Routine Neurological Exam Neurological: Present alert and oriented X3 Comments: has weakness in Left arm, Sensation to touch intact bilaterally. R arm has intact strength Assessment and Plan *Assessment and plan (1) Influenza B: Status: Acute Category: Medical Code(s): J10.1 - Influenza due to other identified influenza virus with other respiratory manifestations (2) Fall: Status: Acute Qualifiers: Encounter type: initial encounter Qualified Code(s): W19.XXXA - Unspecified fall, initial encounter Category: Medical Code(s): W19.XXXA - Unspecified fall, initial encounter (3) General weakness: Status: Acute Category: Medical Code(s): R53.1 - Weakness (4) Lymphedema: Status: Acute Category: Medical Code(s): I89.0 - Lymphedema, not elsewhere classified (5) Unable to care for self: Status: Acute Category: Medical Code(s): Z78.9 - Other specified health status Plan 3-year-old female with unknown medical history, apparently on no home medication, concerned poor medical care, brought to the emergency department for evaluation of generalized weakness and fall. On arrival, CT of the head was obtained, there is negative for acute intracranial process, CTA of the cervical spine showing, with stenosis. Pelvic x-ray and chest x-ray pending for final radiology report. Labs are unremarkable. Patient found to be positive to influenza B. Currently asymptomatic. findings discussed with the ER. I agree for admission. Plan: -Generalized weakness Start continuous monitoring Vital signs per unit protocol PT OT consult. For eval and treat No family available at bedside at this moment. Nursing to contact family for reconcile home meds if there are any Watch and repeat morning labs. Watch for electrolyte imbalance R arm weakness, suspect CVA - CT head and CTA Head and neck - negative for acute process ASA, Statin MRI brain ordered HAI - gentle IV fluid therapy -Influenza B: Currently asymptomatic Monitor for fever and sepsis Negative for O2 saturation -Chronic bilateral lower extremity lymphedema : Wound care consult Assess for lymphedema wrap and lac-hydrin -unable to care for herself: automotive general manager consult. Assist with discharge plan Heparin for DVT prophylaxis. Protonix Full code CVA work up, order Carotid US
--- NOTE | 2023-10-04 15:11 | PC.NURSE ---
PT IS SITTING UP IN THE CHAIR. ALERT AND ORIENTED X4. EATING AND DRINKING WELL. PT CONTINUES TO HAVE WEAKNESS IN HER RIGHT ARM HOWEVER HAS MORE ROM THAN SHE DID YESTERDAY. LUNG SOUNDS CLEAR. ABDOMEN SOFT/NON TENDER WITH ACTIVE BOWEL SOUNDS. BLE EDEMA NOTED. UNNA BOOT NOTED TO THE LLE. SCATTERED ABRASIONS. STAGE 2 AND REDNESS NOTED TO THE BUTTOCKS. WILL CONTINUE TO MONITOR.
[2023-10-04 16:00] VITALS: BP 153/70; PULSE 75; RESP 20; TEMP 36.8; O2SAT 98
[2023-10-04 20:00] VITALS: BP 127/71; PULSE 72; RESP 17; TEMP 36.6; O2SAT 93
[2023-10-04] MEDS: ATORVASTATIN 40MG TABLET 40 MG PO (21:16)
[2023-10-05] MEDS: 0.9 % SODIUM CHLORIDE 1000ML 1,000 ML 75 ML IV (01:25)
[2023-10-05 04:00] VITALS: BP 165/82; PULSE 76; RESP 17; TEMP 36.1; O2SAT 97; BMI 33.9
--- NOTE | 2023-10-05 05:19 | PC.NURSE ---
Patient has had a decent night tonight. Has slept most of the shift. Patient was comfortable in the chair and refused to turn or change positions. Patient has been up to the bedside x3 times to void. Patient tolerated it okay with a full 1 assist to help with the transfer. patient remains on room air and AxO
--- NOTE | 2023-10-05 07:35 | MR_ITS ---
FINAL REPORT CLINICAL HISTORY: CVA COMPARISON: None FINDINGS: Multiplanar MR imaging of the brain was performed without contrast. There is mild age-appropriate atrophy. There are scattered foci of increased T2 signal in the cerebral white matter that have a nonspecific appearance but likely represent mild chronic ischemic/gliotic changes. There is no evidence of intracranial hemorrhage or mass. No abnormal ventricular dilatation is identified. No abnormal extra-axial fluid collection is seen. No abnormality is seen on the diffusion weighted images. The posterior fossa and brainstem are unremarkable. Normal major vessel vascular flow voids are seen. There is widespread sinus mucosal thickening. IMPRESSION: Age-appropriate atrophy and mild chronic ischemic/gliotic changes. No acute intracranial abnormality. Reviewed, Interpreted and Dictated by Grady Clark III, MD Transcribed by Carey Key Authenticated and [facility]
[2023-10-05 08:00] VITALS: BP 184/85; PULSE 85; RESP 16; TEMP 36.4; O2SAT 96
--- NOTE | 2023-10-05 08:40 | PC.NURSE ---
Patient down with radiology staff for MRI
[2023-10-05] MEDS: HEPARIN SODIUM 5,000 UNIT/ML VIAL 5000 UNIT SQ (10:00)
[2023-10-05] MEDS: PANTOPRAZOLE 40MG TABLET 40 MG PO (10:00)
[2023-10-05] MEDS: ASPIRIN EC 81MG TABLET 81 MG PO (10:00)
[2023-10-05 10:35] LABS: Basophils % 0.4 % (0.1-2.0); Eosinophils # 0.6 K/mm3 (0.0-0.4); Eosinophils % 9.9 % (0.1-12.0); Hematocrit 38.9 % (37.0-47.0); Hemoglobin 12.5 g/dL (12.2-16.2); Lymphocytes # 1.1 K/mm3 (0.7-4.5); Mean Corpuscular Hemoglobin 31.5 pg (27.0-31.2); Mean Corpuscular Volume 98.5 fl (81-99); Mean Platelet Volume 8.5 fl (7.4-10.4); Monocytes # 0.3 K/mm3 (0.1-1.0); Monocytes % 4.7 % (1.7-9.3); Neutrophils # 3.7 K/mm3 (1.8-7.8); Platelet Count 253 K/mm3 (142-424); Red Blood Count 3.95 M/mm3 (4.20-5.40); Red Cell Distribution Width 14.9 % (11.5-17.5); White Blood Count 5.6 K/mm3 (4.8-10.8)
[2023-10-05 10:39] LABS: Chloride 107 mmol/L (98-107); Sodium 141 mmol/L (136-145)
[2023-10-05 10:40] LABS: Potassium 4.1 mmoL/L (3.5-5.1)
[2023-10-05 10:42] LABS: Alanine Aminotransferase 68 U/L (12-78); Albumin Level 3.4 g/dl (3.5-5.0); Albumin/Globulin Ratio 0.7 (1.1-1.8); Alkaline Phosphatase 136 U/L (38-126); Anion Gap 9.1 mEq/L (5-15); Aspartate Amino Transferase 167 U/L (14-36); Bilirubin,Total 0.4 mg/dl (0.2-1.3); Blood Urea Nitrogen 20 mg/dl (7-17); Carbon Dioxide 29 mmol/L (22.0-30.0); Creatinine Clearance Estimated 63 mL/min (50-200); Estimated Glomerular Filt Rate 48 ml/min (>60); GFR (African American) 59 ML/MIN (>60); Globulin 5.1 g/dL (1.3-3.2); Total Protein,Serum 8.5 g/dl (6.3-8.2)
[2023-10-05 10:43] LABS: Calcium 7.9 mg/dl (8.4-10.2); Glucose 99 mg/dl (74-100)
--- NOTE | 2023-10-05 13:24 | EXP.DC.SUM ---
General Admission date:: 10/03/23 Discharge date: 10/05/23 HPI HPI HPI: This is a 73-year-old female with unknown medical history, apparently on no home medication, concerned poor medical care, brought to the emergency department for evaluation of generalized weakness and fall. Patient is poor historian and [place]. History obtained mainly for ED documentation and EMS report. According to EMS, they were called to the patient's home for a mechanical ground-level fall that happened just after 2 AM. They lifted states that the patient, who refused transport to the hospital. Given this, they left the scene. Family called EMS back to the scene, as they noted that the patient was unable to get up out of her chair after that helped her into it, and they were not able to help take care of the patient at home anymore. EMS notes that the house is very unkempt with concerns for hoarding like situation. The patient also has chronic lymphedema to her bilateral lower extremities with ulcers on her feet, left greater than right. She states that she did not hurt herself and she would like to go home. Admitted for further work up and management. Hospital Course Hospital Course Hospital Course: Patient was seen and evaluated at the bedside on the day of discharge. Patient is stable for discharge. Patient wishes to be discharged. All patient questions were answered and patient was given time to ask questions. Patient was discharged in stable condition. Patient understands that she can return to ER in case of any sudden changes in health. Total time spent on DC - 38 mins 73-year-old female with unknown medical history, apparently on no home medication, concerned poor medical care, brought to the emergency department for evaluation of generalized weakness and fall. On arrival, CT of the head was obtained, there is negative for acute intracranial process, CTA of the cervical spine showing, with stenosis. Pelvic x-ray and chest x-ray pending for final radiology report. Labs are unremarkable. Patient found to be positive to influenza B. Currently asymptomatic. findings discussed with the ER. I agree for admission. Plan: -Generalized weakness Start continuous monitoring Vital signs per unit protocol PT OT consult. For eval and treat No family available at bedside at this moment. Nursing to contact family for reconcile home meds if there are any Watch and repeat morning labs. Watch for electrolyte imbalance R arm weakness, suspect CVA - CT head and CTA Head and neck - negative for acute process ASA, Statin MRI brain ordered - negative for CVA, CVA ruled out, dc asa, statin HAI - gentle IV fluid therapy -Influenza B: Currently asymptomatic Monitor for fever and sepsis Negative for O2 saturation -Chronic bilateral lower extremity lymphedema : Wound care consult Assess for lymphedema wrap and lac-hydrin -unable to care for herself: cyber workforce developer and manager consult. Assist with discharge plan Heparin for DVT prophylaxis. Protonix Full code Exam Data for Last 24 hours Vital signs and Labs for Last 24 Hours: Temp Pulse Resp BP Pulse Ox O2 Del Method O2 Flow Rate 97.5 F L 85 16 184/85 H 96 Room Air 3 10/05/23 08:00 10/05/23 08:00 10/05/23 08:00 10/05/23 08:00 10/05/23 08:00 10/05/23 11:32 10/03/23 09:00 Laboratory Results - last 24 hr 10/05/23 10:25: WBC 5.6 D, RBC 3.95 L, Hgb 12.5, Hct 38.9, MCV 98.5, MCH 31.5 H, MCHC 32.0, RDW 14.9, Plt Count 253, MPV 8.5, Neut % (Auto) 65.0, Lymph % (Auto) 20.0, [place] % (Auto) 4.7, Eos % (Auto) 9.9, Baso % (Auto) 0.4, Neut # (Auto) 3.7, Lymph # (Auto) 1.1, [place] # (Auto) 0.3, Eos # (Auto) 0.6 H, Baso # (Auto) 0.0, Sodium 141, Potassium 4.1, Chloride 107, Carbon Dioxide 29, Anion Gap 9.1, BUN 20 H, Creatinine 1.10 H D, Estimated Creat Clear 63, Estimated GFR 48 L, Est GFR ( Amer) 59 D, Glucose 99, Calcium 7.9 L, Total Bilirubin 0.4, AST 167 H D, ALT 68 D, Alkaline Phosphatase 136 H, Total Protein 8.5 H, Albumin 3.4 L, Globulin 5.1 H, Albumin/Globulin Ratio 0.7 L I & O for Last 24 hours: Intake & Output 10/02/23 10/03/23 10/04/23 10/05/23 23:59 23:59 23:59 23:59 Intake Total 480 / 720 1200 / 1761 2729 / 2729 1540 / 1540 Output Total 350 / 350 1700 / 1800 900 / 900 0 / 0 Balance 130 / 370 -500 / -39 1829 / 1829 1540 / 1540 Weight 90.86 kg 90.174 kg 90.175 kg 90.178 kg Constitutional Constitutional: no acute distress *Routine HEENT Exam Head: Present normocephalic Eye: Present EOMI and PERRL ENT: Present mucous membranes moist *Routine Neck Exam Neck: Present supple; Absent lymphadenopathy *Routine Respiratory Exam Respiratory: Present CTA bilaterally *Routine Cardiovascular Exam Cardiovascular: Present RRR *Routine Abdominal Exam Abdominal: Present soft and normoactive bowel sounds; Absent tenderness *Routine Extremities Exam Extremities: Absent cyanosis, clubbing or edema *Routine Skin Exam Skin: Present warm; Absent rash *Routine Neurological Exam Neurological: Present alert and oriented X3 Comments: has weakness in Left arm, Sensation to touch intact bilaterally. R arm has intact strength Results Data Completed and Pending Labs on day of discharge: Labs from last 24 hours 10/05/23 10:25 WBC 5.6 D RBC 3.95 L Hgb 12.5 Hct 38.9 MCV 98.5 MCH 31.5 H MCHC 32.0 RDW 14.9 Plt Count 253 MPV 8.5 Neut % (Auto) 65.0 Lymph % (Auto) 20.0 [place] % (Auto) 4.7 Eos % (Auto) 9.9 Baso % (Auto) 0.4 Neut # (Auto) 3.7 Lymph # (Auto) 1.1 [place] # (Auto) 0.3 Eos # (Auto) 0.6 H Baso # (Auto) 0.0 Sodium 141 Potassium 4.1 Chloride 107 Carbon Dioxide 29 Anion Gap 9.1 BUN 20 H Creatinine 1.10 H D Estimated Creat Clear 63 Estimated GFR 48 L Est GFR ( Amer) 59 D Glucose 99 Calcium 7.9 L Total Bilirubin 0.4 AST 167 H D ALT 68 D Alkaline Phosphatase 136 H Total Protein 8.5 H Albumin 3.4 L Globulin 5.1 H Albumin/Globulin Ratio 0.7 L DS: Diagnosis Discharge Diagnosis (1) Influenza B: Status: Acute Code(s): J10.1 - Influenza due to other identified influenza virus with other respiratory manifestations (2) Fall: Status: Acute Code(s): W19.XXXA - Unspecified fall, initial encounter Qualifiers: Encounter type: initial encounter Qualified Code(s): W19.XXXA - Unspecified fall, initial encounter (3) General weakness: Status: Acute Code(s): R53.1 - Weakness (4) Lymphedema: Status: Acute Code(s): I89.0 - Lymphedema, not elsewhere classified (5) Unable to care for self: Status: Acute Code(s): Z78.9 - Other specified health status Meds Home Medications and Allergies Home Medications Medication Instructions Recorded Confirmed Type acetaminophen 500 mg tablet 500 mg PO Q6HP PRN Pain 10/02/23 10/02/23 History New Prescriptions to Start Prescriptions: Allergies Allergy/AdvReac Type Severity Reaction Status Date / Time No Known Allergies Allergy Unverified 09/15/17 15:09 Discharge Plan Disposition Patient Disposition: Home Health Service Condition: Good Discharge Order Discharge Orders: Discharge Order (Routine); Ordered 10/05/23 Ordered By: Natali Graves Follow up Plan Follow up with: Srinath Ortiz DO [Staff Physician] - 10/13/23 3:30 pm Prescriptions/Medication Reconciliation: Continued acetaminophen 500 mg Tablet 500 mg PO Q6HP PRN (Reason: Pain) Other Ambulatory Orders: Home Medical Equipment (Routine) Location: None Selected Ordered By: Natali Graves Problem Reconciliation Problems Reviewed?: Yes Patient Discharge Instructions ACTIVITY: Up with assistance DIET: advance to your usual diet Additional Instructions: follow up with your PCP and Home health regarding your R arm weakness Patient Instructions: DI for Influenza -- Adult, How to Prevent Falls, DI for Lymphedema, DI for Muscle Weakness Providers Primary Care Provider: Provider,Referral Admit Provider: Natali Graves Attending Provider: Natali Graves
--- NOTE | 2023-10-05 15:09 | CA_ITS ---
FINAL REPORT TECHNIQUE: Color Doppler, duplex Doppler and mcdaniel scale sonography of the bilateral neck arterial vasculature was performed. Velocities were measured in the carotid arteries. Stenosis evaluation based on the validated velocity criteria. CLINICAL HISTORY: CVA COMPARISON: None FINDINGS: The peak systolic velocity of the right common carotid artery is 81 cm/s. The peak systolic velocity of the right internal carotid artery is 89 cm/s and end diastolic velocity 30 cm/s. The ICA/CCA ratio is 1.2. A mild amount of plaque is present. The right external carotid artery is patent. The right vertebral artery is patent with antegrade flow. The peak systolic velocity of the left common carotid artery is 88 cm/s. The peak systolic velocity of the left internal carotid artery is 91 cm/s and end diastolic velocity 27 cm/s. The ICA/CCA ratio is 1.2. A mild amount of plaque is present. The left external carotid artery is patent.The left vertebral artery is patent with antegrade flow. IMPRESSION: Less than 50% bilateral carotid stenoses. Bilateral patent vertebral arteries with antegrade flow. If indicated, CTA or MRA could further evaluate. Reviewed, Interpreted and Dictated by Grady Clark III, MD Transcribed by Carey Key Authenticated and [facility]
--- NOTE | 2023-10-05 15:10 | CA_ITS ---
APPROVED REPORT EXAM: Comprehensive 2D, Doppler, and color-flow Echocardiogram Field Evidence Technician: Jessica Simon CRT Ht: 5 ft 4 in Wt: 198lbs BSA: 1.95 BP: 160/109 mmHg Indications: Flu B +, Fall, possible CVA, pt on back up in bed due to SOB. TDE 2D Dimensions LA Volume 22.90 mL LA Volume Index 11.50 mL/m2 (M/F) 16-34 M-Mode Dimensions RVDd 2.79 cm (0.9-2.6) LA Diam 3.47 cm (1.9-4.0) LVDd 4.35 cm (3.5-5.7) LVDs 2.47 cm (3.5-5.7) IVSd 1.31 cm (0.6-1.1) PWd 1.10 cm (0.6-1.1) EF (Teich) 74.60% FS 43.20% EDV (Teich) 85.40 mL TAPSE 2.76 (<1.7) ESV (Teich) 21.70 mL LV Diastology E Decel Time 157 (160-240 msec) E/A Ratio 0.90 MED A' 11.20 cm/s LAT A' 10.40 cm/s Aortic Valve AO Peak GR. 9.00 mmHg Mitral Valve MV E Max Lg. 100.0 (40-130 cm/s) MV A Velocity 111.0 (40-130 cm/s) E/A Ratio 0.90 MV PHT 46.0 ms Pulmonary Valve PV Peak Velocity 214.0 (50-150 cm/s) Tricuspid Valve TR P. Velocity 339.00 cm/s RAP Estimate 10.00 mmHg RVSP 56.00 mmHg Left Ventricle The left ventricle is normal size. The left ventricular systolic function is normal. The left ventricular ejection fraction is within the normal range. There is normal left ventricular wall thickness. There is normal LV segmental wall motion. The left ventricular diastolic function is normal. LVEF is 60%. Right Ventricle Right ventricle is mildly dilated. The right ventricular systolic function is normal. Atria Left atrium is mildly dilated. Right atrium is mildly dilated. There is no Doppler evidence of interatrial shunt. Aortic Valve The aortic valve is mildly thickened. There is no aortic valvular stenosis. No aortic regurgitation is present. Mitral Valve The mitral valve leaflets are mildly thickened. No evidence of mitral valve stenosis. Mild mitral regurgitation. Tricuspid Valve The tricuspid valve leaflets are thin and pliable. Mild tricuspid regurgitation. RVSP is 50-55 mmHg. Pulmonic Valve The pulmonary valve is normal in structure. Mild to moderate pulmonic regurgitation. Great Vessels The aortic root is normal in size. The ascending aorta is not well-visualized. The IVC is dilated, but collapses > 50% with respirophasic variation. The RA pressure is estimated at 8 mmHg. Pericardium There is no pericardial effusion. Other Information Study Quality: Fair Conclusion Normal biventricular systolic function. Mild RV dilation. Mild MR. Mild TR. Mild to moderate OR. Elevated RVSP 50-55 mmHg. Electronically signed by : Marcy Malave MD 10/05/2023 17:40:09
--- NOTE | 2023-10-08 15:46 | CARE MANAGER ---
Unable to reach patient via phone to discuss recent discharge. Call attempted X 2 and no VM option available.
== END 2023-10-05 15:04 | disposition home health service (06) | DRG 194 ==
LOC: ER 06:13 → 2ND 11:44
PROVIDERS: Nurse Practitioner Family; Admitting Provider Internal Medicine; Emergency Provider Emergency Medicine; Visit Provider Internal Medicine
DX: J10.1 Influenza due to other identified influenza virus with other respiratory manifestations (principal); N17.9 Acute kidney failure, unspecified; W19.XXXA Unspecified fall, initial encounter; I89.0 Lymphedema, not elsewhere classified; R50.9 Fever, unspecified
CPT/HCPCS: 36415; 70450; 70496; 70551; 71045; 72125; 72170; 73020; 73060; 80053; 80307; 81001; 83735; 84100; 84436; 84443; 85025; 87636; 93005; 93306; 93880; 97116; 97530; 99285

== ENCOUNTER → 2023-12-04 11:14 | Outpatient (REF) | payer MEDICARE, BC, SELFPAY | LOC: LAB.DROPOF 11:14 | PROVIDERS: Visit Provider Family Medicine | DX: R06.02 Shortness of breath (principal); R50.9 Fever, unspecified; Z03.818 Encounter for observation for suspected exposure to other biological agents ruled out | CPT/HCPCS: 87635 ==

== ENCOUNTER 2025-06-30 18:41 | Observation (INO) | payer MEDICARE, SELFPAY ==
[2025-06-30 18:41] VITALS: BP 158/79; PULSE 83; RESP 18; TEMP 36.6; O2SAT 96; BMI 42.4
--- NOTE | 2025-06-30 18:50 | XR_ITS ---
PROCEDURE INFORMATION: Exam: XR Left Tibia and Fibula Exam date and time: 06/30/2025 8:31 PM Age: 75 years old Clinical indication: Other: Left leg pain and infection TECHNIQUE: Imaging protocol: Radiologic exam of the left tibia and fibula. Views: 2 views. COMPARISON: CT ANGIO ABDOMEN/FEMORAL 06/30/2025 8:21 PM FINDINGS: Bones/joints: No gross fracture or traumatic malalignment. Osteopenia. Moderate osteoarthritic remodeling in the tibiofemoral compartments and moderate patellofemoral osteoarthritic change. Soft tissues: Moderate soft tissue swelling around the knee and lower leg, nonspecific, consider cellulitis or edema. No gross soft tissue air. Other findings: Moderate exam limitation due to unconventional views. IMPRESSION: 1. No acute osseous abnormalities are identified. 2. Osteopenia and osteoarthritic changes. 3. Extensive soft tissue swelling, cellulitis versus edema.
--- NOTE | 2025-06-30 18:51 | XR_ITS ---
PROCEDURE INFORMATION: Exam: XR Left Ankle Exam date and time: 06/30/2025 8:31 PM Age: 75 years old Clinical indication: Other: Left leg pain TECHNIQUE: Imaging protocol: Radiologic exam of the left ankle. Views: 1 or 2 views. COMPARISON: CT ANGIO ABDOMEN/FEMORAL 06/30/2025 8:21 PM FINDINGS: Bones/joints: Osteopenia. No gross fractures although exam sensitivity limited by obliquity on the AP view. Moderate osteoarthritic remodeling in the ankle mortise joint with articular flattening in the talar dome and prominent anteromedial spurring. Moderate plantar calcaneal spurring. Soft tissues: Extensive moderate soft tissue swelling in the left lower leg, ankle, and hindfoot, nonspecific. Consider cellulitis or edema. No soft tissue air. IMPRESSION: 1. No acute fracture or traumatic malalignment is evident radiographically. 2. Severe osteoarthritic remodeling in the ankle mortise joint with prominent anteromedial spurring and calcaneal spurring. MRI would be more sensitive for acute articular insufficiency fracture if suspected clinically. 3. Extensive soft tissue swelling, nonspecific, consider cellulitis or edema. 4. Osteopenia.
--- NOTE | 2025-06-30 18:51 | CT_ITS ---
PROCEDURE INFORMATION: Exam: CTA Abdominal Aorta and Bilateral Lower Extremities (Run-off) With Contrast Exam date and time: 06/30/2025 8:21 PM Age: 75 years old Clinical indication: Other: Left lateral leg infection concern for nsti TECHNIQUE: Imaging protocol: Computed tomographic angiography of the of the abdominal aorta, pelvis and bilateral lower extremities with contrast. 3D rendering (Not supervised by radiologist): MIP and/or 3D reconstructed images were created by the technologist. Radiation optimization: All CT scans at this facility use at least one of these dose optimization techniques: automated exposure control; mA and/or kV adjustment per patient size (includes targeted exams where dose is matched to clinical indication); or iterative reconstruction. Contrast material: ISO 370; Contrast volume: 120 ml; Contrast route: INTRAVENOUS (IV); COMPARISON: CR XR CHEST PORTABLE 10/02/2023 3:43 AM FINDINGS: Aorta: Partially visualized thoracic aorta is unremarkable. Abdominal aorta demonstrates mild calcific plaque but is otherwise unremarkable. Celiac and mesenteric arteries: Celiac artery demonstrates minor ostial calcific plaque without stenosis. Its major branch vessels are unremarkable. SMA is unremarkable. VLAD is unremarkable. Renal arteries: Right renal artery demonstrates mild-moderate post ostial calcific plaque without stenosis. The primary left renal artery is unremarkable. There is also a smaller accessory left renal artery present which is unremarkable. Right iliac arteries: Right iliac arteries demonstrate moderate tortuosity but are otherwise unremarkable. Right femoral/popliteal arteries: Right common femoral artery is normal. Right profunda femoral artery is normal. Right SFA demonstrates mild calcific plaque without stenosis. Right popliteal artery is normal. Right infrapopliteal arteries: Right anterior tibial artery is normal with appropriate enhancement in dorsalis pedis. Right tibioperoneal trunk is normal. Right peroneal artery is normal. Right posterior tibial artery is normal with appropriate enhancement in the plantar branch vessels. Left iliac arteries: Left iliac arteries demonstrate moderate tortuosity but are otherwise unremarkable. Left femoral/popliteal arteries: Left common femoral artery is normal. Left profunda femoral artery is normal. Left SFA is normal. Left popliteal artery is normal. Left infrapopliteal arteries: Left anterior tibial artery is normal with normal enhancement in dorsalis pedis. Left tibioperoneal trunk demonstrates mild calcific plaque without stenosis. Left peroneal artery is normal. Left posterior tibial artery is normal, with appropriate enhancement in the plantar branch vessels. Lungs: Patchy mild alveolar opacities in the bilateral lung bases, favor subsegmental atelectasis although can not exclude mild basilar pneumonia or edema. Heart: Mild-moderate cardiomegaly with right atrial/ventricular dilatation. Esophagus: The visualized distal esophagus is largely contracted without gross abnormality. Liver: Normal contour. No mass lesions. No intrahepatic biliary ductal dilatation. Gallbladder and biliary ducts: Multiple large calcified gallstones in the gallbladder. No changes of cholecystitis. Nondilated bile ducts. Pancreas: Normal. No inflammatory changes or ductal dilation. Spleen: Normal. No splenomegaly. Adrenal glands: Normal. No adrenal mass. Kidneys and ureters: Renal assessment mildly limited by image noise, motion, and streak artifact. No gross abnormalities were evident. No hydronephrosis or hydroureter. No urinary tract stones are identified. Stomach and bowel: The stomach is largely contracted. The small bowel is nondilated with no gross abnormality. No acute colonic abnormalities. Appendix: The appendix is normal in caliber and demonstrates no evidence of appendicitis. Urinary bladder: Unremarkable as visualized. Reproductive: Unremarkable as visualized. Intraperitoneal space: No peritoneal free fluid or air. Lymph nodes: Severe left and moderate right inguinal anisa enlargement. Moderate bilateral iliac anisa enlargement and mildly enlarged lower periaortic and pericaval nodes. These are nonspecific, possibly reactive anisa enlargement from lower extremity cellulitis although correlate clinically to exclude evidence of lymphoproliferative disease. Bones/joints: No acute osseous abnormalities. Osteopenia. Moderate-severe thoracolumbar spondylosis with multilevel severe lumbar disc osteoarthritic changes. Moderate-severe bilateral knee osteoarthritic changes. Severe osteoarthritic remodeling in the left ankle with rounded 18 mm lucency in the medial weight-bearing articular surface of the talar dome which could relate to chronic osteoarthritic remodeling and erosion. The lack of joint effusion goes against acute articular insufficiency fracture, although if this is clinically suspected left ankle MRI would allow more sensitive/specific characterization. Soft tissues: Moderate subcutaneous soft tissue swelling in the left lower extremity involving the mid to distal thigh, knee, lower leg, ankle, and foot consistent with edema or cellulitis. Moderate subcutaneous soft tissue swelling in the right lower leg and ankle consistent with edema or cellulitis also noted. Extensive skin thickening in the left lower leg, ankle, and foot, and in the right ankle and dorsal foot. No soft tissue air. No fluid collections suggestive of abscess or hematoma. IMPRESSION: 1. Extensive bilateral lower extremity soft tissue swelling, greater on the left, consistent with cellulitis or edema. No soft tissue air to suggest necrotizing soft tissue infection. No fluid collections suggestive of abscess or hematoma. 2. No acute vascular abnormalities. No vascular occlusions or significant stenosis. 3. Gallstones without evidence of cholecystitis or biliary obstruction. 4. Cardiomegaly with right atrial/ventricular dilatation. 5. Patchy alveolar opacities in the lung bases probably representing subsegmental atelectasis although can not exclude mild basilar edema or infiltrate. 6. Enlarged bilateral inguinal, iliac, and lower periaortic/pericaval nodes, probably reactive from lower extremity cellulitis although correlate clinically to exclude evidence of lymphoproliferative disease. 7. Extensive osteoarthritic changes detailed above. At the left ankle there is localized articular flattening in the medial weight-bearing surface of the talar dome most likely representing chronic osteoarthritic remodeling although consider nonemergent MRI for greater specificity if there is clinical concern for acute articular insufficiency fracture. 8. Additional nonemergent findings detailed above.
[2025-06-30 18:54] LABS: Hematocrit 39.8 % (37.0-47.0); Hemoglobin 12.6 g/dL (12.2-16.2); Immature Granulocytes % 0.5 %; Mean Corpuscular HGB Conc 31.7 g/dL (31.8-35.4); Mean Corpuscular Hemoglobin 29.4 pg (27.0-31.2); Mean Corpuscular Volume 93.0 fl (81-99); Nucleated Red Blood Cells % 0 %; Platelet Count 252 K/mm3 (142-424); Red Blood Count 4.28 M/mm3 (4.20-5.40); Red Cell Distribution Width-SD 55.9 fL; White Blood Count 10.4 K/mm3 (4.8-10.8)
--- NOTE | 2025-06-30 18:56 | ED_ITS ---
<Statement entered by Keshawn Al MD - 07/01/25 01:57> I was consulted by the ROBBIE, and we discussed the complexity of the problems being addressed. I approve the treatment and management plan for this patient's care in the emergency department, thus performing a substantive portion of the medical decision making. Keshawn Al MD Discharge Plan Disposition Patient Disposition: Admitted Condition: Good Clinical Impressions Clinical Impression: Cellulitis of left leg, Bilateral edema of lower extremity Discharge ED Provider: Keshawn Al General Adult HPI <CHEN Rosales - Last Filed: 06/30/25 22:17> General Chief complaint: Skin/Abscess/Foreign Body Stated complaint: leg infection Time Seen by Provider: 06/30/25 18:42 Mode of Arrival: EMS Source of Information: Patient and EMS Limitations: No Limitations History of Present Illness HPI narrative: 75-year-old female presents to the emergency department via EMS for left leg pain and swelling with difficulty ambulating the last 2 days, patient denies any fever chills chest pain shortness of breath nausea vomiting constipation diarrhea no abdominal pain no urinary type symptomatology, patient denies any alcohol tobacco or drug use, patient tells me she takes no medications at home , except for Tylenol , patient tells me she has had bilateral lower extremity swelling and issues with her skin , she has a chronic wound on her left lower extremity that she has been wrapping with my daughter , for quite some time. Patient is somewhat of a poor historian, upon chart review patient has dated the patient history of CKD, cellulitis of bilateral lower extremities, otherwise unremarkable medical history/data deficient medical history. Initial triage vitals are unremarkable. Please note that above description of symptoms, in this electronic medical record under categorization of recalled from ER triage doctor by RN are reflective of an initial nursing assessment, however, is not reflective of my full history and physical exam that was personally taken and clarified. Consequentially, this preceding description of symptoms, which may include the patient's categorized chief complaint in the EMR, do not reflect my personal clinical impression, and the ultimate description of history of present illness and patient stated complaints should be deferred to this section of the note. Unless stated otherwise or congruent with this section of the note, additional signs, symptoms, or incongruence should be interpreted as inaccurate with my clinical impression. Onset (ago): unknown Related Data Home Medications ?Medication ?Instructions ?Recorded ?Confirmed acetaminophen 500 mg tablet 500 mg PO Q6HP PRN Pain 12/17/23 Allergies Allergy/AdvReac Type Severity Reaction Status Date / Time No Known Allergies Allergy Verified 12/21/23 08:07 [facility] <CHEN Rosales - Last Filed: 06/30/25 22:17> [facility] Disclaimer: The information contained in this section may have been updated after the patient was seen, as this information can be updated by other users. Medical History Hypertension No significant past medical history Lymphedema Unable to care for self General weakness Fall Influenza B Surgical History History of Family History Other Family history of cancer Social History (Updated 06/30/25 @ 23:30 by Nathalie Harrell RN) Smoking Status: Never smoker alcohol intake: never current occupational status: previously employed and disabled Travel in the last 8 weeks?: None Have you lived/traveled outside US in past 30 days?: No Contact w/someone who lives/traveled outside US past 30 days?: No Exposure to someone with infectious disease in past 14 days?: No Do you have a fever (greater than 100.4 F or 38 C)?: No Have you tested positive for COVID-19?: No Exposed to someone with COVID-19 in past 14 days?: No Do you have a sore throat?: No Do you have a cough?: No Do you have any weakness?: No Do you have any diarrhea?: No Are you experiencing any unusual bleeding?: No Do you have any muscle aches/pain?: No Do you have any abdominal pain?: No Are you experiencing loss of taste or smell?: No Other Medical History Have you received the Flu Vaccine for this season: No Have you received the Pneumonia Vaccine: No <CHEN Rosales - Last Filed: 06/30/25 22:17> ROS Obtained: Yes All systems reviewed & no additional complaints except as documented Physical Exam <CHEN Rosales - Last Filed: 06/30/25 22:17> General General appearance: alert and in no apparent distress Head Head exam: atraumatic and normocephalic Eye Eye exam: Present PERRL and EOMI ENT ENT exam: Present mucous membranes moist Neck Neck exam: Present normal inspection Chest Chest inspection: Present normal inspection and symmetric chest wall rise Respiratory Respiratory exam: Present normal lung sounds bilaterally; Absent respiratory distress, wheezes or stridor Cardiovascular Cardiovascular exam: Present regular rate and normal rhythm Abdominal Exam Abdominal exam: Present soft; Absent tenderness Extremities Exam Extremities exam: Present edema and other (Significant dependent edema/lymphedema noted bilaterally, otherwise neurovascular intact.); Absent normal inspection Neurological Exam Neurological exam: Present alert and oriented X3 Psychiatric Psychiatric exam: Present normal affect Skin Skin exam: Present warm, dry, erythema and other (Significant skin thickening, atrophic skin changes noted bilaterally, left worse than right, with obvious area of ulceration/open wound with some eschar and purulent drainage to the left lateral aspect of the tib-fib region, surrounding erythema and lymphedema/edema) Medical Decision Making <CHEN Rosales - Last Filed: 06/30/25 22:17> Medical Records Medical records reviewed: Yes I reviewed the patient's medical records. Screening: Per USPSTF and CDC recommendations, given the prevalence of disease in our region, it is our hospital?s policy to screen for HIV and viral Hepatitis for all patients aged 18 and over and those with ongoing risk factors. Matias Inquiry Pt receiving controlled substance: No Matias was queried for this patient: No Vital Signs: 06/30/25 18:41 06/30/25 21:01 06/30/25 21:31 Temperature 97.9 F Temperature Source Oral Pulse Rate 91 H 89 Pulse Rate [Radial] 83 Respiratory Rate 18 Blood Pressure 162/67 H 174/110 H Blood Pressure [Right Arm] 158/79 H Blood Pressure Mean 98 123 Blood Pressure Mean [Right Arm] 105 Blood Pressure Source [Right Arm] Automatic Cuff Blood Pressure Position [Right Arm] Sitting 02 Sat by Pulse Oximetry 96 94 L 94 L Oxygen Delivery Method Room Air Room Air Room Air 06/30/25 22:55 Temperature 97.7 F Temperature Source Oral Pulse Rate 78 Pulse Rate [Radial] Respiratory Rate 17 Blood Pressure 144/78 H Blood Pressure [Right Arm] Blood Pressure Mean Blood Pressure Mean [Right Arm] Blood Pressure Source [Right Arm] Blood Pressure Position [Right Arm] 02 Sat by Pulse Oximetry Oxygen Delivery Method Room Air Lab Data Lab results reviewed: Yes I reviewed the patient's lab results. Lab Results 06/30/25 18:44: WBC 10.4, RBC 4.28, Hgb 12.6, Hct 39.8, MCV 93.0, MCH 29.4, MCHC 31.7 L, RDW 16.4, Plt Count 252, MPV 9.2, Neut % (Auto) 76.0, Lymph % (Auto) 13.6, Kimball % (Auto) 6.9, Eos % (Auto) 2.3, Baso % (Auto) 0.7, Neut # (Auto) 7.9 H, Lymph # (Auto) 1.4, Kimball # (Auto) 0.7, Eos # (Auto) 0.2, Baso # (Auto) 0.1, S odium 133 L, Potassium 4.7, Chloride 103, Carbon Dioxide 21 L, Anion Gap 13.7, BUN 15, Creatinine 0.80, Estimated Creat Clear 42, Estimated GFR 70, Est GFR ( Amer) 84, Glucose 131 H, Calcium 8.8, Total Bilirubin 0.9, AST 43 H, ALT 21, Alkaline Phosphatase 124, C-Reactive Protein 70.1 H, NT-Pro-B Natriuret Pep 287, Total Protein 8.4 H, Albumin 3.8, Globulin 4.6 H, Albumin/Globulin Ratio 0.8 L, HCV Ab BINDU w/Rflx PCR Qn Negative, HIV Ag/Ab Combo Qual Positive 06/30/25 19:14: ESR 20, Lactate 1.2 06/30/25 20:57: HIV (1&2) Ag & Ab Conf Positive 06/30/25 18:44 06/30/25 18:44 Orders (Tests/Meds): ED MEDICATIONS Generic Name Dose Route Start Last Admin Trade Name Freq PRN Reason Stop Dose Admin Acetaminophen 650 mg 06/30/25 21:52 Acetaminophen 325mg Tab PO 07/30/25 21:51 Q4HP PRN Fever or Mild Pain (1-3) Heparin Sodium (Porcine) 5,000 unit 07/01/25 09:00 Heparin Sodium 5,000 Unit/Ml Vial SUBCUT 07/31/25 08:59 TID NORMA Miscellaneous 1 each 06/30/25 19:00 06/30/25 19:56 Vancomycin Consult Request NOTAPPLIC 07/30/25 18:59 1 each CONSULT PHARMACY [facility] Administration Morphine Sulfate 1 mg 06/30/25 21:52 Morphine 2mg/Ml Syringe IV 07/30/25 21:51 Q2HP PRN Severe Pain (7-10) Discontinued Medications Generic Name Dose Route Start Last Admin Trade Name Freq PRN Reason Stop Dose Admin Piperacillin Sod/Tazobactam 50 mls @ 100 mls/hr 06/30/25 18:55 06/30/25 20:47 Sod 3.375 gm/ Sodium Chloride IV 06/30/25 19:24 Infused ONCE ONE Infusion Vancomycin HCl 2,500 mg/ 500 mls @ 250 mls/hr 06/30/25 19:30 06/30/25 22:37 Sodium Chloride IV 06/30/25 21:29 Infused ONCE ONE Infusion Iopamidol 120 ml 06/30/25 20:36 06/30/25 20:37 Iopamidol-370 (76%);100ml Bottle IV 06/30/25 20:37 120 ml ONCE ONE Administration Sodium Chloride 50 ml 06/30/25 20:36 06/30/25 20:37 0.9 % Sodium Chloride 50 Ml Vial IV 06/30/25 20:37 50 ml ONCE ONE Administration Sodium Chloride 10 ml 06/30/25 20:36 06/30/25 20:37 Sodium Chloride 0.9% 10ml Syr (Rad Only) IV 06/30/25 20:37 10 ml ONCE ONE Administration ORDERS Category Date Time Status CT angio abdomen/femoral Stat Cat Scan 06/30/25 18:51 Completed POCUS Point of Care (ER Only) Stat Exams 06/30/25 18:53 Completed XR ankle LT 2V Stat Exams 06/30/25 18:51 Completed XR tibia fibula LT 2V Stat Exams 06/30/25 18:50 Completed Basic Metabolic Panel AMLAB Lab 07/01/25 06:00 Ordered CRP [C-Reactive Protein] Stat Lab 06/30/25 18:44 Completed Complete Blood Count Auto Diff AMLAB Lab 07/01/25 06:00 Ordered Complete Blood Count Auto Diff Stat Lab 06/30/25 18:44 Completed Comprehensive Metabolic Panel Stat Lab 06/30/25 18:44 Completed ESR [Erythrocyte Sedimentation Rate] Stat Lab 06/30/25 19:14 Completed HIV Combo Retest Routine Lab 06/30/25 20:57 Completed HIV Combo Stat Lab 06/30/25 18:44 Completed Hepatitis C Ab Qual. W/ RFX Stat Lab 06/30/25 18:44 Completed Lactic Acid Stat Lab 06/30/25 19:14 Completed NT Pro Brain Natriuretic Pep. Stat Lab 06/30/25 18:44 Completed Blood Culture Stat Micro 06/30/25 19:10 Received Wound Culture and Gram Stain Stat Micro 06/30/25 19:22 Ordered Medical Decision Narrative: 75-year-old female presents to the emergency department with left lower extremity swelling pain and discharge worsened within the last 2 days, where patient has difficulty ambulating, differential diagnose include but not limited to, cellulitis, osteomyelitis, NSTI, pressure ulcer, vascular ulcer, diabetic ulcer, chronic venous stasis dermatitis, lymphedema, dependent edema, among others. I discussed this patient's case with the attending physician Dr. Al he saw and examined the patient as well. Will obtain basic laboratory studies, lactic acid level proBNP, blood cultures, ESR and CRP CT angio of the abdomen with runoffs of bilateral lower extremities, POCUS, x-ray of the ankle on the left x-ray of the tib-fib on the left, we will prophylactically start vancomycin pharmacy to dose and 3.375 IV Zosyn. CBC unremarkable CMP noted for mild hyponatremia 133, mild AST elevation of 43 proBNP within normal limits CRP is elevated at 70.1 ESR within normal limits No lactic acidosis I reviewed the patient's left ankle x-ray, left tib-fib x-ray along with corresponding radiologic reports, no acute fracture or traumatic malalignment is evident radiographically, severe osteoarthritic remodeling in the ankle mortise joint prominent anterior medial spurring calcaneal spurring, MRI be more sensitive for acute articular insufficiency fracture suspected clinically, extended soft tissue welling nonspecific consider cellulitis or edema, osteopenia. I reviewed the patient's CTA abdomen with runoff bilateral lower extremities, along the corresponding radiologic report, extensive bilateral lower extremity soft tissue swelling greater on the left consistent with cellulitis or edema, no soft tissue air to suggest necrotizing soft tissue infection no fluid collections suggestive of abscess or hematoma, no acute vascular abnormalities no vascular occlusion or significant stenosis, gallstones or evidence of cholecystitis or biliary obstruction, cardiomegaly with right atrial/ventricular dilation, patchy alveolar opacities in the lung bases probably representing subsegmental atelectasis although cannot exclude mild basilar edema or infiltrate, enlarged bilateral inguinal iliac and lower periaortic pericaval nodes probably reactive from lower extremity cellulitis although correlate clinically, extensive osteoarthritic changes detailed above at the left ankle there is localized articular flattening in the medial weightbearing surface of the talar dome os likely representing chronic osteoarthritis remodeling although consider nonemergent MRI for greater spasticity if there is any clinical concern for acute articular insufficiency fracture. I discussed this patient's case with the hospitalist physician at approximately 9:50 PM, he is in agreement with the current admission plan/treatment plan for left lower extremity cellulitis. I discussed need for admission with the patient the bedside patient is in agreement with the current admission plan/treatment plan. <Keshawn Al MD - Last Filed: 07/01/25 02:10> Vital Signs: 06/30/25 18:41 06/30/25 21:01 06/30/25 21:31 Temperature 97.9 F Temperature Source Oral Pulse Rate 91 H 89 Pulse Rate [Radial] 83 Respiratory Rate 18 Blood Pressure 162/67 H 174/110 H Blood Pressure [Right Arm] 158/79 H Blood Pressure Mean 98 123 Blood Pressure Mean [Right Arm] 105 Blood Pressure Source [Right Arm] Automatic Cuff Blood Pressure Position [Right Arm] Sitting 02 Sat by Pulse Oximetry 96 94 L 94 L Oxygen Delivery Method Room Air Room Air Room Air 06/30/25 22:55 Temperature 97.7 F Temperature Source Oral Pulse Rate 78 Pulse Rate [Radial] Respiratory Rate 17 Blood Pressure 144/78 H Blood Pressure [Right Arm] Blood Pressure Mean Blood Pressure Mean [Right Arm] Blood Pressure Source [Right Arm] Blood Pressure Position [Right Arm] 02 Sat by Pulse Oximetry Oxygen Delivery Method Room Air Lab Data Lab Results 06/30/25 18:44: WBC 10.4, RBC 4.28, Hgb 12.6, Hct 39.8, MCV 93.0, MCH 29.4, MCHC 31.7 L, RDW 16.4, Plt Count 252, MPV 9.2, Neut % (Auto) 76.0, Lymph % (Auto) 13.6, Kimball % (Auto) 6.9, Eos % (Auto) 2.3, Baso % (Auto) 0.7, Neut # (Auto) 7.9 H, Lymph # (Auto) 1.4, Kimball # (Auto) 0.7, Eos # (Auto) 0.2, Baso # (Auto) 0.1, S odium 133 L, Potassium 4.7, Chloride 103, Carbon Dioxide 21 L, Anion Gap 13.7, BUN 15, Creatinine 0.80, Estimated Creat Clear 42, Estimated GFR 70, Est GFR ( Amer) 84, Glucose 131 H, Calcium 8.8, Total Bilirubin 0.9, AST 43 H, ALT 21, Alkaline Phosphatase 124, C-Reactive Protein 70.1 H, NT-Pro-B Natriuret Pep 287, Total Protein 8.4 H, Albumin 3.8, Globulin 4.6 H, Albumin/Globulin Ratio 0.8 L, HCV Ab BINDU w/Rflx PCR Qn Negative, HIV Ag/Ab Combo Qual Positive 06/30/25 19:14: ESR 20, Lactate 1.2 06/30/25 20:57: HIV (1&2) Ag & Ab Conf Positive Orders (Tests/Meds): ED MEDICATIONS Generic Name Dose Route Start Last Admin Trade Name Freq PRN Reason Stop Dose Admin Acetaminophen 650 mg 06/30/25 21:52 Acetaminophen 325mg Tab PO 07/30/25 21:51 Q4HP PRN Fever or Mild Pain (1-3) Heparin Sodium (Porcine) 5,000 unit 07/01/25 09:00 Heparin Sodium 5,000 Unit/Ml Vial SUBCUT 07/31/25 08:59 TID [facility] Miscellaneous 1 each 06/30/25 19:00 06/30/25 19:56 Vancomycin Consult Request NOTAPPLIC 07/30/25 18:59 1 each CONSULT PHARMACY [facility] Administration Morphine Sulfate 1 mg 06/30/25 21:52 Morphine 2mg/Ml Syringe IV 07/30/25 21:51 Q2HP PRN Severe Pain (7-10) Discontinued Medications Generic Name Dose Route Start Last Admin Trade Name Freq PRN Reason Stop Dose Admin Piperacillin Sod/Tazobactam 50 mls @ 100 mls/hr 06/30/25 18:55 06/30/25 20:47 Sod 3.375 gm/ Sodium Chloride IV 06/30/25 19:24 Infused ONCE ONE Infusion Vancomycin HCl 2,500 mg/ 500 mls @ 250 mls/hr 06/30/25 19:30 06/30/25 22:37 Sodium Chloride IV 06/30/25 21:29 Infused ONCE ONE Infusion Iopamidol 120 ml 06/30/25 20:36 06/30/25 20:37 Iopamidol-370 (76%);100ml Bottle IV 06/30/25 20:37 120 ml ONCE ONE Administration Sodium Chloride 50 ml 06/30/25 20:36 06/30/25 20:37 0.9 % Sodium Chloride 50 Ml Vial IV 06/30/25 20:37 50 ml ONCE ONE Administration Sodium Chloride 10 ml 06/30/25 20:36 06/30/25 20:37 Sodium Chloride 0.9% 10ml Syr (Rad Only) IV 06/30/25 20:37 10 ml ONCE ONE Administration ORDERS Category Date Time Status CT angio abdomen/femoral Stat Cat Scan 06/30/25 18:51 Completed POCUS Point of Care (ER Only) Stat Exams 06/30/25 18:53 Completed XR ankle LT 2V Stat Exams 06/30/25 18:51 Completed XR tibia fibula LT 2V Stat Exams 06/30/25 18:50 Completed Basic Metabolic Panel AMLAB Lab 07/01/25 06:00 Ordered CRP [C-Reactive Protein] Stat Lab 06/30/25 18:44 Completed Complete Blood Count Auto Diff AMLAB Lab 07/01/25 06:00 Ordered Complete Blood Count Auto Diff Stat Lab 06/30/25 18:44 Completed Comprehensive Metabolic Panel Stat Lab 06/30/25 18:44 Completed ESR [Erythrocyte Sedimentation Rate] Stat Lab 06/30/25 19:14 Completed HIV Combo Retest Routine Lab 06/30/25 20:57 Completed HIV Combo Stat Lab 06/30/25 18:44 Completed Hepatitis C Ab Qual. W/ RFX Stat Lab 06/30/25 18:44 Completed Lactic Acid Stat Lab 06/30/25 19:14 Completed NT Pro Brain Natriuretic Pep. Stat Lab 06/30/25 18:44 Completed Blood Culture Stat Micro 06/30/25 19:10 Received Wound Culture and Gram Stain Stat Micro 06/30/25 19:22 Ordered Procedures <Keshawn Al MD - Last Filed: 07/01/25 02:10> Limited Ultrasound Interpretation:: Limited MSK/soft tissue ultrasound performed by ksKeshawn MD Indication: -Soft tissue swelling -Soft tissue redness Identified structures: Location: Distal LLE Findings: -Cellulitis, no subcutaneous air Impression: -Cellulitis of soft tissue Images were saved to permanent archive The study was technically adequate Soft Tissue CPT Codes: CPT Lower Extremity: 86347-55 CPT Other Soft Tissue: 34398-90 This study was performed by me, and I personally interpreted all images/videos. Based on my clinical judgement, these images were adequate and did not necessitate further imaging. Critical Care <CHEN Rosales - Last Filed: 06/30/25 22:17> Critical Care Time Critical Care Time: No
[2025-06-30 19:06] LABS: Alanine Aminotransferase 21 U/L (12-78); Albumin Level 3.8 g/dl (3.5-5.0); Albumin/Globulin Ratio 0.8 (1.1-1.8); Alkaline Phosphatase 124 U/L (38-126); Anion Gap 13.7 mEq/L (5-15); Aspartate Amino Transferase 43 U/L (14-36); Bilirubin,Total 0.9 mg/dl (0.2-1.3); Blood Urea Nitrogen 15 mg/dl (7-17); Calcium 8.8 mg/dl (8.4-10.2); Carbon Dioxide 21 mmol/L (22.0-30.0); Chloride 103 mmol/L (98-107); Creatinine Clearance Estimated 42 mL/min (50-200); Creatinine,Serum 0.80 mg/dl (0.52-1.04); Estimated Glomerular Filt Rate 70 ml/min (>60); GFR (African American) 84 ML/MIN (>60); Globulin 4.6 g/dL (1.3-3.2); Glucose 131 mg/dl (74-100); Potassium 4.7 mmoL/L (3.5-5.1); Sodium 133 mmol/L (136-145); Total Protein,Serum 8.4 g/dl (6.3-8.2)
[2025-06-30 19:15] LABS: NT Pro Brain Natriuretic Pep. 287 pg/mL (0-450)
[2025-06-30 19:18] LABS: C-Reactive Protein 70.1 mg/L (0-4)
[2025-06-30] MEDS: PIPERACILLIN/TAZO 3.375 GM in 0.9 % SODIUM CHLORIDE 50 ML IV (19:20)
[2025-06-30] MEDS: VANCOMYCIN CONSULT REQUEST 1 EACH NOTAPPLIC (19:56)
[2025-06-30 20:01] LABS: Hepatitis C Ab Qual. W/ RFX NEGATIVE (Negative)
[2025-06-30] MEDS: VANCOMYCIN HCL 2,500 MG in 0.9 % SODIUM CHLORIDE 500 ML 250 MG IV (20:11)
[2025-06-30] MEDS: 0.9 % SODIUM CHLORIDE 50 ML VIAL IV (20:37)
[2025-06-30] MEDS: IOPAMIDOL-370 (76%);100ML BOTTLE 120 ML IV (20:37)
[2025-06-30] MEDS: SODIUM CHLORIDE 0.9% 10ML SYR (RAD ONLY) 10 ML IV (20:37)
[2025-06-30 21:01] VITALS: BP 162/67; PULSE 91; O2SAT 94
[2025-06-30 21:31] VITALS: BP 174/110; PULSE 89; O2SAT 94
[2025-06-30 21:58] LABS: HIV Combo Retest POSITIVE (Negative)
--- NOTE | 2025-06-30 22:28 | PC.ADMIT ---
[email or web address] [facility] Admission Note: The patient,Pushpa Schneider,75 y/o, was given written information regarding hospital policies, unit procedures and contact persons. Patient's smoking status: Never smoker. Vital Signs - 8 hr 06/30/25 18:41 06/30/25 21:01 06/30/25 21:31 Temperature 97.9 F Pulse Rate 91 H 89 Pulse Rate [Radial] 83 Respiratory Rate 18 Blood Pressure 162/67 H 174/110 H Blood Pressure [Right Arm] 158/79 H 02 Sat by Pulse Oximetry 96 94 L 94 L Oxygen Delivery Method Room Air Room Air Room Air
--- NOTE | 2025-06-30 22:28 | PC.NURSE ---
report called to arian LARA
[2025-06-30 22:55] VITALS: BP 144/78; PULSE 78; RESP 17; TEMP 36.5; O2SAT 98
[2025-06-30 23:30] VITALS: RESP 14; O2SAT 96
--- NOTE | 2025-06-30 23:51 | PC.NURSE ---
patient didn't bring any medications in tonight - claims she only takes tylenol and doesn't have a PCP or go to the doctor - attempted to collect medical hx, pt denies any medical hx. Patient was gave a bath upon arrival to the floor and purewick in place r/t wounds and mobility concerns. pt reports she can walk, but staff is concerned with ambulating her r/t condition of wounds on BLE without PT eval first.
[2025-07-01] VITALS: BP 152/59; PULSE 101; RESP 14; TEMP 36.5; O2SAT 96; BMI 42.0
--- NOTE | 2025-07-01 00:06 | PC.NURSE ---
patient son called and stated that they've been trying to get her to go to the hospital or doctor for years and she refuses to. Son was concerned that her medicaid card was out of date and was requesting assistance with renewing.
--- NOTE | 2025-07-01 00:26 | PC.WOUNDNOTE ---
BLE above left foot above lateral left calf right foot left LE right foot left foot right upper thigh left upper thigh between left glute and left thigh excoriation under right breast excoriation under left arm pit left foot/heel
[2025-07-01 04:00] VITALS: BP 167/86; PULSE 92; RESP 14; TEMP 36.6; O2SAT 96; BMI 42.2
--- NOTE | 2025-07-01 05:19 | INFXCTL.NOTE ---
Pt. was admitted overnight for Bilateral lower leg swelling, pain and difficulty walking for pas t couple of weeks. Pt. is a poor historian. states she has no medical problems and on occasion may take Tylenol as needed. Pt. is obese and unable to move self well. Upon arrival to med/surg. Pt. had on a brief that was soaked through her night dress and her legs had some towels and ABD pads covering one leg. Pt; was given a bath and chux pad placed on bed for weeping legs. BLE with multiple areas of breakdown and ulcers. top of feet scaly and hard. Pt. has not had toenails cut in a long time. Toenails, long thick and some are curled around. See photo's. wound consult was placed as well as PT/OT, and case management. Pt received IV antibiotics in the ED. Pt.'s lives with family and they help as much as they can. They state that the patient refuses to go to doctors. Pt. uses a walker at home to get around but has had decrease in mobility the last couple of weeks. Pt. slept well this shift. Personal items and call nicole in reach. Bed in low and locked position. Safety measures in place.
--- NOTE | 2025-07-01 05:21 | EXP.HP ---
History of Present Illness *Admission Date: 07/01/25 *Reason for visit:: Leg pain *History of present illness: Patient is a 75-year-old female with past medical history of CKD stage III, chronic venous insufficiency of bilateral legs who presents to the hospital due to left leg pain and bilateral leg swelling for past 2 to 3 days patient is very hard of hearing, according to the patient she has not seen any physicians lately for quite some time. Patient mentions she has chronic swelling of her legs due to her venous issues however her legs are more swollen than normal and painful due to associated redness on her left leg. Patient otherwise denied fevers chills diarrhea constipation dysuria. On further evaluation in the emergency department patient had CTA bilateral legs which was negative for any arterial blockage. [facility] Disclaimer: The information contained in this section may have been updated after the patient was seen, as this information can be updated by other users. Medical History Hypertension No significant past medical history Lymphedema Unable to care for self General weakness Fall Influenza B Surgical History History of Family History Other Family history of cancer Social History (Updated 06/30/25 @ 23:30 by Nathalie Harrell RN) Smoking Status: Never smoker alcohol intake: never current occupational status: previously employed and disabled Travel in the last 8 weeks?: None Have you lived/traveled outside US in past 30 days?: No Contact w/someone who lives/traveled outside US past 30 days?: No Exposure to someone with infectious disease in past 14 days?: No Do you have a fever (greater than 100.4 F or 38 C)?: No Have you tested positive for COVID-19?: No Exposed to someone with COVID-19 in past 14 days?: No Do you have a sore throat?: No Do you have a cough?: No Do you have any weakness?: No Do you have any diarrhea?: No Are you experiencing any unusual bleeding?: No Do you have any muscle aches/pain?: No Do you have any abdominal pain?: No Are you experiencing loss of taste or smell?: No Other Medical History Have you received the Flu Vaccine for this season: No Have you received the Pneumonia Vaccine: No Review of Systems Review of Systems Review of systems:: pertinent systems reviewed and negative unless documented below Meds Home Medications and Allergies Home Medications ?Medication ?Instructions ?Recorded ?Confirmed ?Type acetaminophen 500 mg tablet 500 mg PO Q6HP PRN Pain 10/02/23 12/17/23 History New Prescriptions to Start Prescriptions: Allergies Allergy/AdvReac Type Severity Reaction Status Date / Time No Known Allergies Allergy Verified 12/21/23 08:07 Exam Data for Last 24 hours Vital signs and Labs for Last 24 Hours: Temp Pulse Resp BP Pulse Ox O2 Del Method 97.7 F 101 H 14 152/59 H 96 Room Air 07/01/25 00:00 07/01/25 00:00 07/01/25 00:00 07/01/25 00:00 07/01/25 00:00 07/01/25 01:00 Laboratory Results - last 24 hr 06/30/25 18:44: WBC 10.4, RBC 4.28, Hgb 12.6, Hct 39.8, MCV 93.0, MCH 29.4, MCHC 31.7 L, RDW 16.4, Plt Count 252, MPV 9.2, Neut % (Auto) 76.0, Lymph % (Auto) 13.6, [place] % (Auto) 6.9, Eos % (Auto) 2.3, Baso % (Auto) 0.7, Neut # (Auto) 7.9 H, Lymph # (Auto) 1.4, [place] # (Auto) 0.7, Eos # (Auto) 0.2, Baso # (Auto) 0.1, Sodium 133 L, Potassium 4.7, Chloride 103, Carbon Dioxide 21 L, Anion Gap 13.7, BUN 15, Creatinine 0.80, Estimated Creat Clear 42, Estimated GFR 70, Est GFR ( Amer) 84, Glucose 131 H, Calcium 8.8, Total Bilirubin 0.9, AST 43 H, ALT 21, Alkaline Phosphatase 124, C-Reactive Protein 70.1 H, NT-Pro-B Natriuret Pep 287, Total Protein 8.4 H, Albumin 3.8, Globulin 4.6 H, Albumin/Globulin Ratio 0.8 L, HCV Ab BINDU w/Rflx PCR Qn Negative, HIV Ag/Ab Combo Qual Positive 06/30/25 19:14: ESR 20, Lactate 1.2 06/30/25 20:57: HIV (1&2) Ag & Ab Conf Positive I & O for Last 24 hours: Intake & Output 06/28/25 06/29/25 06/30/25 07/01/25 23:59 23:59 23:59 23:59 Intake Total 550 / 550 0 / 0 Output Total 600 / 600 Balance 550 / 400 -600 / -600 Weight 115.666 kg 114.351 kg Constitutional Constitutional: no acute distress *Routine HEENT Exam Head: Present normocephalic Eye: Present EOMI and PERRL ENT: Present mucous membranes moist *Routine Neck Exam Neck: Present supple; Absent lymphadenopathy *Routine Respiratory Exam Respiratory: Present CTA bilaterally *Routine Cardiovascular Exam Cardiovascular: Present RRR *Routine Abdominal Exam Abdominal: Present soft and normoactive bowel sounds; Absent tenderness *Routine Rectal Exam Rectal:: deferred *Routine Genitalia Exam Genitalia:: deferred *Routine Extremities Exam Extremities: Present edema; Absent cyanosis or clubbing Comments: edema, redness, warmth rere legs, more on left than right leg *Routine Skin Exam Skin: Present warm; Absent rash *Routine Neurological Exam Neurological: Present alert and oriented X3 Assessment and Plan *Assessment and plan (1) Bilateral edema of lower extremity: Status: Acute Category: Medical Code(s): R60.0 - Localized edema (2) Cellulitis of left leg: Status: Acute Category: Medical Code(s): L03.116 - Cellulitis of left lower limb (3) Debility: Status: Acute Category: Medical Code(s): R53.81 - Other malaise Plan Patient is a 75-year-old female with past medical history of CKD stage III, chronic venous insufficiency of bilateral legs who presents to the hospital due to left leg pain and bilateral leg swelling for past 2 to 3 days patient is very hard of hearing, according to the patient she has not seen any physicians lately for quite some time. Patient mentions she has chronic swelling of her legs due to her venous issues however her legs are more swollen than normal and painful due to associated redness on her left leg. Patient otherwise denied fevers chills diarrhea constipation dysuria. On further evaluation in the emergency department patient had CTA bilateral legs which was negative for any arterial blockage. Assessment and plan Bilateral lower extremity swelling Left lower extremity cellulitis Chronic venous insufficiency Bilateral lower extremity leg wounds Difficulty ambulation Start IV vancomycin, Zosyn Wound care Consult PT/OT CTA bilateral legs which was negative for any arterial blockage or significant stenosis HIV antigen antibody test performed in ED-positive Follow-up as outpatient DVT prophylaxis-subcutaneous heparin
[2025-07-01 07:09] LABS: Hematocrit 41.0 % (37.0-47.0); Hemoglobin 13.2 g/dL (12.2-16.2); Immature Granulocytes % 0.4 %; Mean Corpuscular HGB Conc 32.2 g/dL (31.8-35.4); Mean Corpuscular Hemoglobin 29.8 pg (27.0-31.2); Mean Corpuscular Volume 92.6 fl (81-99); Nucleated Red Blood Cells % 0 %; Platelet Count 238 K/mm3 (142-424); Red Blood Count 4.43 M/mm3 (4.20-5.40); Red Cell Distribution Width-SD 55.9 fL; White Blood Count 11.0 K/mm3 (4.8-10.8)
[2025-07-01 07:25] LABS: Chloride 104 mmol/L (98-107); Sodium 137 mmol/L (136-145)
[2025-07-01 07:26] LABS: Potassium 4.1 mmoL/L (3.5-5.1)
[2025-07-01 07:28] LABS: Anion Gap 10.1 mEq/L (5-15); Blood Urea Nitrogen 11 mg/dl (7-17); Carbon Dioxide 27 mmol/L (22.0-30.0); Creatinine Clearance Estimated 41 mL/min (50-200); Creatinine,Serum 0.80 mg/dl (0.52-1.04); Estimated Glomerular Filt Rate 70 ml/min (>60); GFR (African American) 84 ML/MIN (>60)
[2025-07-01 07:29] LABS: Calcium 8.7 mg/dl (8.4-10.2); Glucose 98 mg/dl (74-100)
[2025-07-01 07:43] VITALS: BP 130/93; PULSE 100; RESP 16; TEMP 36.9; O2SAT 95
[2025-07-01 08:58] VITALS: BMI 42.2
[2025-07-01] MEDS: PIPERACILLIN/TAZO 3.375 GM in 0.9 % SODIUM CHLORIDE 50 ML IV ×3 (09:51→22:17)
[2025-07-01] MEDS: HEPARIN SODIUM 5,000 UNIT/ML VIAL 5000 UNIT SUBCUT ×3 (09:51→20:11)
[2025-07-01] MEDS: BUMETANIDE 1MG/4ML VIAL 1 MG IV (09:51)
--- NOTE | 2025-07-01 10:48 | HMH.PTEV ---
Physical Therapy Evaluation Rehab PT IP Evaluation Start: 06/30/25 23:35 Freq: ONCE Status: Active Protocol: Document 07/01/25 10:39 IZA (Rec: 07/01/25 10:46 IZA [id number]) Subjective/History History History Per H&P: Patient is a 75-year-old female with past medical history of CKD stage III, chronic venous insufficiency of bilateral legs who presents to the hospital due to left leg pain and bilateral leg swelling for past 2 to 3 days patient is very hard of hearing, according to the patient she has not seen any physicians lately for quite some time. Patient mentions she has chronic swelling of her legs due to her venous issues however her legs are more swollen than normal and painful due to associated redness on her left leg. Patient otherwise denied fevers chills diarrhea constipation dysuria. On further evaluation in the emergency department patient had CTA bilateral legs which was negative for any arterial blockage. Subjective Subjective Pt reports she lives with her daughter in a single- story home with 0 JESSIE. Pt reports she is ambulatory with a RW at baseline. Pt reports she has not had any falls in the past 6 months. [facility] How much help from another person do you currently need... Turning from your A lot back to your side while in a flat bed without using bedrails? Moving from lying on A lot back to sitting on the side of a flat bed without using bedrails? Moving to and from a A lot bed to a chair ( including a wheelchair)? Standing up from a A lot chair using your arms? (e.g., wheelchair, bedside chair) Walking in hospital A lot room? Climbing 3-5 steps Total with a railing? Mobility Score 11 Mobility Level [facility] Mobility 4 Move to chair/commode Mobility Calculator Rehab PT IP Eval Objective Appearance Patient Behavior Appropriate,Cooperative Patient Orientation Person,Situation Difficulty following none instructions Speech Pattern Clear Ambulation Patient Able to No Ambulate Balance Ability to Arise Unable Sitting Balance Leans or slides in chair Transfers Bed Transfer Ability Maximum x 2 (75% assist) Rehab PT IP prob,goals,plan Problems Date of Evaluation: 07/01/25 PT IP Problems Bed Mobility,Transfers,Gait,Balance,Self care,Safety Rehab Potential Rehab Potential Good Plan PT Intervention Plan Bed Mobility,Transfers,Gait,Balance,Self care,Safety, Therapeutic Exercise Other Intervention 1-2 times Plan PT Plan Frequency Daily Duration LOS Discharge Goals Bed Transfer Ability Maximum x 1 (75% assist) Sit to Stand Chair Maximum x 1 (75% assist) Transfer Ability Discharge Plan PT Discharge Plan Pt presents below her baseline in all functional mobility. Pt was not able to fully sit EOB despite Max A d/t weakness and BLE pain. Pt not safe to return home at this time d/t impaired functional mobility. PT recommending inpatient rehabilitation facility (IRF) placement upon d/c from [facility] to maximize safety with mobility and decrease caregiver burden. Eval Complexity Eval Charge Codes 56607 - Moderate Complexity PHYSICIAN CERTIFICATION: I certify the specified therapy services for Pushpa Schneider are required, authorized, and reviewed every 30 days.
--- NOTE | 2025-07-01 11:26 | P.CONPHA_ITS ---
Pharmacy Consult Date: 07/01/25 Time: 11:26 Referring provider: DR. REAGAN Reason for Consult:: VANCOMYCIN DOSING Allergies Allergy/AdvReac Type Severity Reaction Status Date / Time No Known Allergies Allergy Verified 12/21/23 08:07 Home Medications ?Medication ?Instructions ?Recorded ?Confirmed ?Type No Known Home Medications 07/01/2501/20 History New Prescriptions to Start Prescriptions: Height: 1.65 m Weight: 114.895 kg Laboratory Results:: Laboratory Results - last 24 hr 06/30/25 18:44: WBC 10.4, RBC 4.28, Hgb 12.6, Hct 39.8, MCV 93.0, MCH 29.4, MCHC 31.7 L, RDW 16.4, Plt Count 252, MPV 9.2, Neut % (Auto) 76.0, Lymph % (Auto) 13.6, [place] % (Auto) 6.9, Eos % (Auto) 2.3, Baso % (Auto) 0.7, Neut # (Auto) 7.9 H, Lymph # (Auto) 1.4, [place] # (Auto) 0.7, Eos # (Auto) 0.2, Baso # (Auto) 0.1, Sodium 133 L, Potassium 4.7, Chloride 103, Carbon Dioxide 21 L, Anion Gap 13.7, BUN 15, Creatinine 0.80, Estimated Creat Clear 42, Estimated GFR 70, Est GFR ( Amer) 84, Glucose 131 H, Calcium 8.8, Total Bilirubin 0.9, AST 43 H, ALT 21, Alkaline Phosphatase 124, C-Reactive Protein 70.1 H, NT-Pro-B Natriuret Pep 287, Total Protein 8.4 H, Albumin 3.8, Globulin 4.6 H, Albumin/Globulin Ratio 0.8 L, HCV Ab BINDU w/Rflx PCR Qn Negative, HIV Ag/Ab Combo Qual Positive 06/30/25 19:14: ESR 20, Lactate 1.2 06/30/25 20:57: HIV (1&2) Ag & Ab Conf Positive 07/01/25 06:46: WBC 11.0 H, RBC 4.43, Hgb 13.2, Hct 41.0, MCV 92.6, MCH 29.8, MCHC 32.2, RDW 16.5, Plt Count 238, MPV 9.1, Neut % (Auto) 85.1 H, Lymph % (Auto) 6.2 L, [place] % (Auto) 6.3, Eos % (Auto) 1.5, Baso % (Auto) 0.5, Neut # (Auto) 9.4 H, Lymph # (Auto) 0.7, [place] # (Auto) 0.7, Eos # (Auto) 0.2, Baso # (Auto) 0.1, Sodium 137, Potassium 4.1, Chloride 104, Carbon Dioxide 27, Anion Gap 10.1, BUN 11 D, Creatinine 0.80, Estimated Creat Clear 41, Estimated GFR 70, Est GFR ( Amer) 84, Glucose 98 D, Calcium 8.7 Medical History: Medical History (Updated 07/01/25 @ 05:23 by Natali Reagan MD) Hypertension No significant past medical history Lymphedema Unable to care for self General weakness Fall Influenza B Assessment and Plan Assessment and plan all Dx Assessment and Plan for all problems:: Pharmacokinetic dosing service Objective: Patient: Floor: Age: 75 yo Serum creatinine: 0.80 mg/dL Height: 65.0 Inches Weight (kg): 115 Assessment: IBW (kg): 57.00 Dosing wt(kg): 115 Estimated Creatinine clearance (ml/min): 53.0 CRCL method: Cockcroft and Gault using ibw(default). Drug selected: Vancomycin Loading dose (mg): Vd (liters): 92.0 (factor used: 0.8 L/kg) Arun (hr-1): 0.048 Half life (hrs): 14.44 CLvanco=?? 4.416 L/hr Recommended dose: 2250 mg Interval: 24 hrs Infusion time (hrs): 2.0 Predicted peak (mcg/mL): 34.1 Predicted trough (mcg/mL): 11.86 Total body weight is being used for vancomycin dosing. Recommendations: Give Vancomycin 2250 mg q 24 hrs with an expected Cpeak of 34.1 mcg/ml and an expected Ctrough of 11.86 mcg/ml AUC 0-24 /FAUSTO Data: FAUSTO 0.5 mcg/mL:?? AUC/FAUSTO:? 1019.0 FAUSTO 1.0 mcg/mL:?? AUC/FAUSTO:? 509.5 --------- FAUSTO 1.5 mcg/mL:?? AUC/FAUSTO:? 339.7 FAUSTO 2.0 mcg/mL:?? AUC/FAUSTO:? 254.8 Thank you for the consult, will continue to follow. -MARLENI HERNANDEZ, OWEND
[2025-07-01 16:00] VITALS: BP 136/66; PULSE 96; RESP 16; TEMP 37.4; O2SAT 96
--- NOTE | 2025-07-01 16:54 | INFXCTL.NOTE ---
Aox 4, assist times 2, turn every two hours, iv abx, on RA, consults to PT/OT/CM/Nutrition, cardiac diet, 18g L FA, 20 r ac sl, purewick in place.
[2025-07-01 20:00] VITALS: BP 120/66; PULSE 93; RESP 14; TEMP 36.8; O2SAT 91
[2025-07-01] MEDS: VANCOMYCIN HCL 2,250 MG in 0.9 % SODIUM CHLORIDE 250 ML 125 MG IV (20:03)
[2025-07-02] MEDS: PIPERACILLIN/TAZO 3.375 GM in 0.9 % SODIUM CHLORIDE 50 ML IV ×4 (03:01→20:32)
[2025-07-02 04:00] VITALS: BP 119/57; PULSE 84; RESP 12; TEMP 36.7; O2SAT 91; BMI 43.1
[2025-07-02 07:18] LABS: Hematocrit 35.6 % (37.0-47.0); Hemoglobin 11.1 g/dL (12.2-16.2); Immature Granulocytes % 0.2 %; Mean Corpuscular HGB Conc 31.2 g/dL (31.8-35.4); Mean Corpuscular Hemoglobin 29.1 pg (27.0-31.2); Mean Corpuscular Volume 93.4 fl (81-99); Nucleated Red Blood Cells % 0 %; Platelet Count 218 K/mm3 (142-424); Red Blood Count 3.81 M/mm3 (4.20-5.40); Red Cell Distribution Width-SD 57.8 fL; White Blood Count 8.4 K/mm3 (4.8-10.8)
[2025-07-02 07:37] LABS: Albumin Level 2.7 g/dl (3.5-5.0); Chloride 105 mmol/L (98-107)
[2025-07-02 07:38] LABS: Potassium 4.0 mmoL/L (3.5-5.1); Sodium 135 mmol/L (136-145)
--- NOTE | 2025-07-02 07:39 | PC.NURSE ---
Pt. is alert and orientated x 4. Pt. is on room air. Pt. was admitted with Bilateral lower leg pain, swelling and weakness. Pt. lives at home and has family to help her. Per family pt. does not like to go to the doctors for car. Pt. is a poor historian. Pt. also very hard of hearing. Pt. BLE swollen with pitting edema. Pt. has open weeping rich on the the legs. Pt. toenail have not been cut in a long time. Toenail long, thick and curled. . The top of patients feet are very rough and scaly. Pt. feeling weak and unable to ambulate. Per family patient gets around the house using a walker. Pt. getting IV antibiotics . Purewick in place. Personal items and call nicole in use. Bed in low and locked position. safety measures in place.
[2025-07-02 07:40] LABS: Alanine Aminotransferase 13 U/L (12-78); Alkaline Phosphatase 96 U/L (38-126); Anion Gap 8.0 mEq/L (5-15); Aspartate Amino Transferase 32 U/L (14-36); Bilirubin,Total 0.3 mg/dl (0.2-1.3); Blood Urea Nitrogen 20 mg/dl (7-17); Carbon Dioxide 26 mmol/L (22.0-30.0); Creatinine Clearance Estimated 29 mL/min (50-200); Creatinine,Serum 1.40 mg/dl (0.52-1.04); Estimated Glomerular Filt Rate 36 ml/min (>60); GFR (African American) 44 ML/MIN (>60)
[2025-07-02 07:41] VITALS: BP 135/70; PULSE 85; RESP 16; TEMP 37.1; O2SAT 94
[2025-07-02 07:41] LABS: Albumin/Globulin Ratio 0.7 (1.1-1.8); Calcium 8.0 mg/dl (8.4-10.2); Globulin 3.9 g/dL (1.3-3.2); Glucose 93 mg/dl (74-100); Magnesium 2.1 mg/dl (1.6-2.3); Total Protein,Serum 6.6 g/dl (6.3-8.2)
[2025-07-02 08:20] VITALS: O2SAT 94
[2025-07-02] MEDS: HEPARIN SODIUM 5,000 UNIT/ML VIAL 5000 UNIT SUBCUT ×3 (08:37→20:32)
--- NOTE | 2025-07-02 10:07 | P.PN_ITS ---
Subjective *Date: 07/02/25 *Time: 10:22 Interval history: Patient quite weak. States she is having trouble walking. More interactive today on exam. No fever overnight. No nausea or vomiting. Wound cultures growing gram-negative rods. Tolerating p.o. intake. Working with therapy. Medical Exam Vital signs and Labs for Last 24 Hours: Vital Signs Temp Pulse Resp BP Pulse Ox O2 Del Method 07/02/25 07:41 98.7 F 85 16 135/70 94 L Room Air 07/02/25 07:00 Room Air 07/02/25 05:00 Room Air 07/02/25 04:00 98.1 F 84 12 119/57 L 91 L Room Air 07/02/25 03:00 Room Air 07/02/25 01:00 Room Air 07/01/25 23:00 Room Air 07/01/25 21:00 Room Air 07/01/25 20:00 14 91 L Room Air 07/01/25 20:00 98.2 F 93 H 14 120/66 91 L Room Air 07/01/25 17:58 Room Air 07/01/25 16:35 Room Air 07/01/25 16:00 99.3 F 96 H 16 136/66 96 Room Air 07/01/25 14:03 Room Air 07/01/25 12:08 Room Air 07/01/25 11:00 Room Air Intake and Output 07/01/25 07/02/25 07/02/25 23:59 07:59 15:59 Intake Total 710 / 1480 240 / 340 100 / 340 Output Total 900 / 3300 400 / 400 Balance -190 / -1820 -160 / -60 100 / -60 Intake: Intake, Oral Amount 360 / 1080 240 / 240 Intake, Total IV Amount 350 / 400 100 / 100 Piperacillin/Tazo 3.375 gm In 0 100 / 100 100 / 100 .9 % Sodium Chloride 50 ml @ 100 mls/hr IV Q6H NORMA Rx#: [id number] Vancomycin HCl 2,250 mg In 0.9 250 / 250 % Sodium Chloride 250 ml @ 125 mls/hr IV Q24H NORMA Rx#:[id number] Output: Output, Urine Amount 900 / 3300 400 / 400 Other: Number of Unmeasured Voids 0 0 Number of Bowel Movements 1 Weight 117.48 kg Patient Weight 07/02/25 23:59 Weight 117.48 kg Laboratory Results - last 24 hr 06/30/25 20:57: HIV 1&2 Ag/Ab, 4th Gen Non reactive 07/02/25 06:55: WBC 8.4, RBC 3.81 L, Hgb 11.1 L, Hct 35.6 L, MCV 93.4, MCH 29.1, MCHC 31.2 L, RDW 16.9, Plt Count 218, MPV 9.4, Neut % (Auto) 67.9, Lymph % (Auto) 17.7, [place] % (Auto) 10.3 H, Eos % (Auto) 3.3, Baso % (Auto) 0.6, Neut # (Auto) 5.7, Lymph # (Auto) 1.5, [place] # (Auto) 0.9, Eos # (Auto) 0.3, Baso # (Auto) 0.1, Sodium 135 L, Potassium 4.0, Chloride 105, Carbon Dioxide 26, Anion Gap 8.0, BUN 20 H D, Creatinine 1.40 H D, Estimated Creat Clear 29, Estimated GFR 36 L, Est GFR ( Amer) 44 L D, Glucose 93, Calcium 8.0 L, Magnesium 2.1, Total Bilirubin 0.3, AST 32 D, ALT 13 D, Alkaline Phosphatase 96, Total Protein 6.6, Albumin 2.7 L, Globulin 3.9 H, Albumin/Globulin Ratio 0.7 L I & O for Labs for Last 24 Hours: Intake & Output 06/29/25 06/30/25 07/01/25 07/02/25 23:59 23:59 23:59 23:59 Intake Total 550 / 550 1240 / 1480 340 / 340 Output Total 3300 / 3300 400 / 400 Balance 550 / 400 -2060 / -1820 -60 / -60 Weight 115.666 kg 114.895 kg 117.48 kg Microbiology Reports for the Last 24 Hours: Microbiology 06/30/25 19:26 Leg,Left Gram Stain - Final 06/30/25 19:26 Leg,Left Wound Culture - Preliminary Gram Negative Rods 06/30/25 19:10 Blood Blood Culture - Preliminary NO GROWTH AFTER 24 HOURS 06/30/25 19:14 Blood Blood Culture - Preliminary NO GROWTH AFTER 24 HOURS Constitutional: Present no acute distress, morbidly obese, chronically ill appearing, disheveled and cooperative Head: Present atraumatic and normocephalic ENT: Present normal exam Respiratory: Present normal respiratory effort; Absent respiratory distress, rhonchi, stridor, wheezes or crackles Cardiac: Present Reg Rate and Rhythm GI: Present soft and normal bowel sounds; Absent distention or tenderness Extremities: Present full ROM; Absent normal inspection Comment:: Chronic stasis changes bilaterally. Dense woody edema. Large approximately 6 inch x 4 inch stasis ulceration left lateral leg with purulent drainage. Was present on admission. Skin: Present erythema and wounds (Left lateral anterior lower leg. Present on admission; has purulent drainage) Comment:: Thick hypertrophic nails Neuro: Present Grossly Intact, alert, awake, oriented x 3 and moves all extremities Assessment and Plan *Assessment and plan (1) Bilateral edema of lower extremity: Status: Acute Category: Medical Code(s): R60.0 - Localized edema (2) Cellulitis of left leg: Status: Acute Category: Medical Code(s): L03.116 - Cellulitis of left lower limb (3) Debility: Status: Acute Category: Medical Code(s): R53.81 - Other malaise (4) Chronic kidney disease, stage 3a: Status: Acute Category: Medical Code(s): N18.31 - Chronic kidney disease, stage 3a (5) Unable to care for self: Status: Chronic Category: Medical Code(s): Z78.9 - Other specified health status (6) Ulcer of extremity due to chronic venous insufficiency: Status: Acute Category: Medical Code(s): L98.499 - Non-pressure chronic ulcer of skin of other sites with unspecified severity; I87.2 - Venous insufficiency (chronic) (peripheral) Plan Patient is a 75-year-old female with past medical history of CKD stage III, chronic venous insufficiency of bilateral legs who presents to the hospital due to left leg pain and bilateral leg swelling for past 2 to 3 days patient is very hard of hearing, according to the patient she has not seen any physicians lately for quite some time. Patient mentions she has chronic swelling of her legs due to her venous issues however her legs are more swollen than normal and painful due to associated redness on her left leg. Patient otherwise denied fevers chills diarrhea constipation dysuria. On further evaluation in the emergency department patient had CTA bilateral legs which was negative for any arterial blockage. Treating for cellulitis and venous insufficiency ulcer. Working with therapy. Needs placement due to debility and nursing needs along with wound care. Problems addressed as follows: Bilateral lower extremity swelling Left lower extremity cellulitis Chronic venous insufficiency Bilateral lower extremity leg wounds Inability to care for self/debility - Continue broad-spectrum antibiotics with IV vancomycin and Zosyn due to likely polymicrobial wound of left lower leg. -White count normal this morning at 8.4. Leg wound culture growing gram- negative rods. Concern for possible Pseudomonas given appearance of drainage. -Wound care consult placed. -Continue to work with therapy, currently recommend placement. Case management consulted to assist with options and discussion with family CKD 3: Kidney function stable BUN 20, creatinine 1.4. Potassium 4.0, magnesium 2.1. Repeat CBC, CMP, magnesium ordered for the morning Morbid obesity complicates all aspects of her care DVT prophylaxis-subcutaneous heparin Regular diet Full code
[2025-07-02 15:59] VITALS: BP 129/60; PULSE 80; RESP 16; TEMP 37.2; O2SAT 93
[2025-07-02 20:00] VITALS: BP 133/68; PULSE 89; RESP 12; TEMP 36.8; O2SAT 94
[2025-07-02] MEDS: VANCOMYCIN HCL 2,250 MG in 0.9 % SODIUM CHLORIDE 250 ML 125 MG IV (20:31)
[2025-07-03] MEDS: PIPERACILLIN/TAZO 3.375 GM in 0.9 % SODIUM CHLORIDE 50 ML IV ×2 (03:24→09:10)
[2025-07-03 04:00] VITALS: BP 150/70; PULSE 84; RESP 16; TEMP 36.6; O2SAT 92; BMI 43.0
[2025-07-03 06:32] LABS: Hematocrit 34.9 % (37.0-47.0); Hemoglobin 11.0 g/dL (12.2-16.2); Immature Granulocytes % 0.4 %; Mean Corpuscular HGB Conc 31.5 g/dL (31.8-35.4); Mean Corpuscular Hemoglobin 29.1 pg (27.0-31.2); Mean Corpuscular Volume 92.3 fl (81-99); Nucleated Red Blood Cells % 0 %; Platelet Count 225 K/mm3 (142-424); Red Blood Count 3.78 M/mm3 (4.20-5.40); Red Cell Distribution Width-SD 57.0 fL; White Blood Count 7.4 K/mm3 (4.8-10.8)
--- NOTE | 2025-07-03 06:42 | PC.NURSE ---
Pt was admitted for bilateral Cellulitis, Pt has Pitting edema bilateral lower extremities. Pt is on a Cardiac diet. Pt has a pure wic. Pt has a new IV at 22 Gauge in the R wrist place tonight during this shift. Pt is getting Heparin SQ for VTE. Pt is A & O X 4. Pt is awaiting placement. Personal items and call nicole in reach. safety measures in place. ANJELICA FITCH RN
[2025-07-03 07:20] VITALS: BP 156/92; PULSE 80; RESP 16; TEMP 36.8; O2SAT 92
--- NOTE | 2025-07-03 08:25 | SW/DCPLANNER ---
Addendum entered by Lissette Dhaliwal 07/03/25 14:07: Patient will [facility] to [facility] care today. Addendum entered by Lissette Dhaliwal 07/03/25 13:58: [facility] willing to accept patient [facility] level of care. Patient is agreeable to placement. I have called and updated patient's daughter. Addendum entered by Lissette Dhaliwal 07/03/25 10:18: Patient is agreeable for information to be faxed to [facility], [facility] and [facility] this AM. The following facilities do NOT have [facility] pending beds: [facility], [facility] and [facility]. I am waiting to hear [facility], [facility] and [facility]. Original Note: I spoke w/ patient regarding plans once she is medically stable for discharge. PT evaluated patient and recommended SNF level of care. I did explain to patient that she is in OBS status and would require private pay vs [facility] pending. Per patient she could meet requirements for Medicaid. Patient stated that her daughter would be at bedside soon and willing to discuss discharge planning. I will contact daughter via phone and arrange time for group discussion regarding discharge planning. Patient stated in the past she went to live w/ her son and he took care of her 24-7. Discharge date is unknown at this time. CM will continue to follow up.
[2025-07-03 08:32] LABS: Albumin Level 2.8 g/dl (3.5-5.0); Chloride 104 mmol/L (98-107); Potassium 4.4 mmoL/L (3.5-5.1)
[2025-07-03 08:35] LABS: Alanine Aminotransferase 14 U/L (12-78); Albumin/Globulin Ratio 0.7 (1.1-1.8); Alkaline Phosphatase 85 U/L (38-126); Anion Gap 9.4 mEq/L (5-15); Aspartate Amino Transferase 30 U/L (14-36); Bilirubin,Total 0.3 mg/dl (0.2-1.3); Calcium 8.1 mg/dl (8.4-10.2); Carbon Dioxide 27 mmol/L (22.0-30.0); Globulin 4.1 g/dL (1.3-3.2); Glucose 93 mg/dl (74-100); Sodium 136 mmol/L (136-145); Total Protein,Serum 6.9 g/dl (6.3-8.2)
--- NOTE | 2025-07-03 11:46 | HMH.PTWOUND ---
Rehab Wound Evaluation Rehab IP Wound Evaluation Start: 07/01/25 07:09 Freq: ONCE Status: Active Protocol: Document 07/03/25 11:24 IZA (Rec: 07/03/25 11:42 IZA [id number]) Rehab PT Wound Assessment Subjective Subjective Per H&P: Patient is a 75-year-old female with past medical history of CKD stage III, chronic venous insufficiency of bilateral legs who presents to the hospital due to left leg pain and bilateral leg swelling for past 2 to 3 days patient is very hard of hearing, according to the patient she has not seen any physicians lately for quite some time. Patient mentions she has chronic swelling of her legs due to her venous issues however her legs are more swollen than normal and painful due to associated redness on her left leg. Patient otherwise denied fevers chills diarrhea constipation dysuria. On further evaluation in the emergency department patient had CTA bilateral legs which was negative for any arterial blockage. Wound Left Heel Wound Type Pressure Ulcer Wound Staging Stage II Query Text:Stage I - Unbroken, red skin, no blanching. Stage II - Skin broken, superficial skin loss involving epidermis alone or also dermis. Partial loss of skin layers. Stage III - Pressure area involves epidermis, dermis and subcutaneous tissue, full thickness skin loss. Stage IV - Pressure area involves epidermis, subcutaneous tissue, bone and other supportive tissue. Full thickness skin loss with extensive destruction of underlying tissue and structures. Wound Length (cm) 3.5 Wound Width (cm) 2.7 Wound Depth (cm) 0.1 Wound Bed Appearance Latta Wound Margins Macerated Description Surrounding Tissue Dark Red Appearance Wound Drainage Sanguineous Description Drainage Amount Small Drainage Odor Slight Odor Primary Dressing Composite Wound Secondary Gauze Roll/Wrap Dressing Type Left Lateral Calf Wound Length (cm) 10.5 Wound Width (cm) 9.0 Wound Depth (cm) 0.2 Wound Bed Appearance Beefy Red,Yellow Percentage 90 Granulated (%) Percentage of Slough 10 (%) Wound Margins Well Defined Description Surrounding Tissue Dark Red,Purple Appearance Wound Drainage Serosanguineous Description Drainage Amount Large Drainage Odor Slight Odor Primary Dressing calcium alginate pad Wound Secondary Non-Adherent Gauze Pad,Gauze Roll/Wrap Dressing Type Plan/Recommendation Comment Pt presents with a wound to her left lateral calf measuring 10.5cm x 9.0cm x 0.2cm and a stage II heel ulcer measuring 3.5 cm x 2.7 cm x 0.1 cm. PT irrigated wounds with Hibiclens antiseptic. PT dressed pt's calf wound with calcium alginate and an abdominal pad. PT placed a boarded foam dressing over pt's heel wound. Both dressings were reinforced with gauze wrap. Pt tolerated wound care well. Nursing staff to continue dressing changes as needed and perform repositioning per protocol. Eval Complexity Eval Charge Codes 99537 - Moderate Complexity PHYSICIAN CERTIFICATION: I certify the specified therapy services for Pushpa Schneider are required, authorized, and reviewed every 30 days.
--- NOTE | 2025-07-03 12:46 | HMH.PHAAMS2 ---
- Antimicrobial Stewardship Review 48 hour timeout review Stewardship interventions: 48 hour timeout review, reviewed - no change Comments: pipercillin and vancomycin for polymicrobial wound infection, empiric therapy appropriate culture & sensitivity review Stewardship interventions: culture & sensitivity review, reviewed - no change Comments: c&s reviewed, provider note reviewed, continue empiric vancomycin and pipercillin
[2025-07-03 12:56] LABS: Blood Urea Nitrogen 20 mg/dl (7-17); Creatinine Clearance Estimated 37 mL/min (50-200); Creatinine,Serum 1.10 mg/dl (0.52-1.04); Estimated Glomerular Filt Rate 48 ml/min (>60); GFR (African American) 58 ML/MIN (>60)
--- NOTE | 2025-07-03 13:52 | P.DS_ITS ---
<Statement entered by Srinath Paulson MD - 07/07/25 12:05> Agree with plan of care as outlined by the [employer]. General Admission date:: 06/30/25 Discharge date: 07/03/25 HPI HPI HPI: Patient is a 75-year-old female with past medical history of CKD stage III, chronic venous insufficiency of bilateral legs who presents to the hospital due to left leg pain and bilateral leg swelling for past 2 to 3 days patient is very hard of hearing, according to the patient she has not seen any physicians lately for quite some time. Patient mentions she has chronic swelling of her legs due to her venous issues however her legs are more swollen than normal and painful due to associated redness on her left leg. Patient otherwise denied fevers chills diarrhea constipation dysuria. On further evaluation in the emergency department patient had CTA bilateral legs which was negative for any arterial blockage. Hospital Course Hospital Course Hospital Course: Patient is a 75-year-old female with past medical history of CKD stage III, chronic venous insufficiency of bilateral legs who presents to the hospital due to left leg pain and bilateral leg swelling for past 2 to 3 days patient is very hard of hearing, according to the patient she has not seen any physicians for quite some time. Patient mentions she has chronic swelling of her legs due to her venous issues however her legs are more swollen than normal and painful due to associated redness on her left leg. Patient otherwise denied fevers chills diarrhea constipation dysuria. On further evaluation in the emergency department patient had CTA bilateral legs which was negative for any arterial blockage. Treating for cellulitis and venous insufficiency ulcer. Working with therapy. Necessitating placement due to debility and nursing needs along with wound care. Problems addressed as follows: #Bilateral lower extremity swelling #Left lower extremity cellulitis #Chronic venous insufficiency #Bilateral lower extremity leg wounds #Inability to care for self/debility ?Patient has notable left leg venous stasis insufficiency wound and cellulitis. Patient has been receiving broad-spectrum antibiotics, vancomycin and Zosyn IV. Wound culture positive for Providenci Rettgeri sensitive to Levaquin. Will transition patient to Levaquin p.o. (renally dosed) for a total of 7 days of antibiotics. ?Patient should have wound care daily, cleaning with Hibiclens, with calcium alginate and ABD pad. Change as needed when saturated. ?Patient will need to continue to working with physical/occupational therapy while at SNF facility to gain strength. #CKD, stage III ? Kidney function stable during admission, BUN 20, creatinine 1.10. No electrolyte abnormalities noted, potassium 4.4, sodium 136. #Morbid obesity ?Complicates all aspects of her care. BMI 43. Total time spent on discharge 32 minutes in counseling, documentation, chart review, and direct care with patient. Exam Data for Last 24 hours Vital signs and Labs for Last 24 Hours: Temp Pulse Resp BP Pulse Ox O2 Del Method 98.3 F 80 16 156/92 H 92 L Room Air 07/03/25 07:20 07/03/25 07:20 07/03/25 07:20 07/03/25 07:20 07/03/25 07:20 07/03/25 13:00 Laboratory Results - last 24 hr 07/03/25 05:57: WBC 7.4, RBC 3.78 L, Hgb 11.0 L, Hct 34.9 L, MCV 92.3, MCH 29.1, MCHC 31.5 L, RDW 16.9, Plt Count 225, MPV 9.4, Neut % (Auto) 67.2, Lymph % (Auto) 16.6, Ross % (Auto) 10.2 H, Eos % (Auto) 4.9, Baso % (Auto) 0.7, Neut # (Auto) 4.9, Lymph # (Auto) 1.2, Ross # (Auto) 0.8, Eos # (Auto) 0.4, Baso # (Auto) 0.1, Sodium 136, Potassium 4.4, Chloride 104, Carbon Dioxide 27, Anion Gap 9.4, BUN 20 H, Creatinine 1.10 H D, Estimated Creat Clear 37, Estimated GFR 48 L, Est GFR ( Amer) 58 L D, Glucose 93, Calcium 8.1 L, Total Bilirubin 0.3, AST 30, ALT 14, Alkaline Phosphatase 85, Total Protein 6.9, Albumin 2.8 L, Globulin 4.1 H, Albumin/Globulin Ratio 0.7 L I & O for Last 24 hours: Intake & Output 06/30/25 07/01/25 07/02/25 07/03/25 23:59 23:59 23:59 23:59 Intake Total 550 / 550 1240 / 1480 1870 / 2110 1010 / 1010 Output Total 3300 / 3300 600 / 600 750 / 750 Balance 550 / 400 -2060 / -1820 1270 / 1510 260 / 260 Weight 115.666 kg 114.895 kg 117.48 kg 117.027 kg Microbiology Reports for the Last 24 Hours: Microbiology 06/30/25 19:26 Leg,Left Gram Stain - Final 06/30/25 19:26 Leg,Left Wound Culture - Preliminary Providencia rettgeri 06/30/25 19:10 Blood Blood Culture - Preliminary NO GROWTH AFTER 48 HOURS 06/30/25 19:14 Blood Blood Culture - Preliminary NO GROWTH AFTER 48 HOURS Constitutional Constitutional: no acute distress, morbidly obese, chronically ill appearing and cooperative *Routine HEENT Exam Head: Present normocephalic Eye: Present EOMI ENT: Present mucous membranes moist *Routine Neck Exam Neck: Present supple *Routine Respiratory Exam Respiratory: Present decreased breath sounds, CTA bilaterally, normal respiratory effort and able to speak in complete sentences; Absent wheezes or crackles *Routine Cardiovascular Exam Cardiovascular: Present RRR, Normal S1 and Normal S2; Absent murmur *Routine Abdominal Exam Abdominal: Present soft, normoactive bowel sounds and obese; Absent tenderness *Routine Extremities Exam Extremities: Present edema (Bilateral lower extremities to knees 1+) *Routine Skin Exam Skin: Present erythema (Bilateral lower extremities), wounds (Left lower leg, right heel) and cracked (Bilateral lower extremities) *Routine Neurological Exam Neurological: Present alert, oriented X3 and normal speech; Absent hearing grossly intact Comments: [facility] Routine Psychiatric Exam Psychiatric: Present normal affect Results Data Completed and Pending Labs on day of discharge: Labs from last 24 hours 07/03/25 05:57 WBC 7.4 RBC 3.78 L Hgb 11.0 L Hct 34.9 L MCV 92.3 MCH 29.1 MCHC 31.5 L RDW 16.9 Plt Count 225 MPV 9.4 Neut % (Auto) 67.2 Lymph % (Auto) 16.6 Ross % (Auto) 10.2 H Eos % (Auto) 4.9 Baso % (Auto) 0.7 Neut # (Auto) 4.9 Lymph # (Auto) 1.2 Ross # (Auto) 0.8 Eos # (Auto) 0.4 Baso # (Auto) 0.1 Sodium 136 Potassium 4.4 Chloride 104 Carbon Dioxide 27 Anion Gap 9.4 BUN 20 H Creatinine 1.10 H D Estimated Creat Clear 37 Estimated GFR 48 L Est GFR ( Amer) 58 L D Glucose 93 Calcium 8.1 L Total Bilirubin 0.3 AST 30 ALT 14 Alkaline Phosphatase 85 Total Protein 6.9 Albumin 2.8 L Globulin 4.1 H Albumin/Globulin Ratio 0.7 L Preliminary micro results at discharge 06/30/25 19:26 Wound Culture - Preliminary Leg,Left Providencia rettgeri 06/30/25 19:10 Blood Culture - Preliminary Blood NO GROWTH AFTER 48 HOURS 06/30/25 19:14 Blood Culture - Preliminary Blood NO GROWTH AFTER 48 HOURS DS: Diagnosis Discharge Diagnosis (1) Bilateral edema of lower extremity: Status: Acute Code(s): R60.0 - Localized edema (2) Cellulitis of left leg: Status: Acute Code(s): L03.116 - Cellulitis of left lower limb (3) Debility: Status: Acute Code(s): R53.81 - Other malaise (4) Chronic kidney disease, stage 3a: Status: Acute Code(s): N18.31 - Chronic kidney disease, stage 3a (5) Unable to care for self: Status: Chronic Code(s): Z78.9 - Other specified health status (6) Ulcer of extremity due to chronic venous insufficiency: Status: Acute Code(s): L98.499 - Non-pressure chronic ulcer of skin of other sites with unspecified severity; I87.2 - Venous insufficiency (chronic) (peripheral) Meds Home Medications and Allergies Home Medications ?Medication ?Instructions ?Recorded ?Confirmed ?Type levofloxacin 250 mg tablet 250 mg PO DAILY #3 tabs 03/22 Rx New Prescriptions to Start Prescriptions: Orin Ngo Allergies Allergy/AdvReac Type Severity Reaction Status Date / Time No Known Allergies Allergy Verified 12/21/23 08:07 Discharge Plan Disposition Patient Disposition: [facility] Intermediate Care Fac Condition: Fair Discharge Order Discharge Orders: Discharge Order (Routine); Ordered 07/03/25 Ordered By: Orin Bishop Follow up Plan Follow up with: Provider,Referral, [Primary Care Provider, Medical] - Enter time for follow up Prescriptions/Medication Reconciliation: New levofloxacin 250 mg tablet 250 mg PO DAILY Qty: 3 0RF Problem Reconciliation Problems Reviewed?: Yes Patient Discharge Instructions ACTIVITY: Ambulate as tolerated and Up with assistance DIET: continue same diet Patient Instructions: DI for Cellulitis in Adults, Stop Light Heart Failure, Stop Light Infection Print Language: Greenlandic Providers Primary Care Provider: Provider,Referral Admit Provider: Roman Wise Attending Provider: Roman Wise
--- NOTE | 2025-07-03 14:36 | HMH.OTEV ---
OT Evaluation Rehab OT IP Evaluation Start: 07/03/25 14:30 Freq: ONCE Status: Active Protocol: Document 07/03/25 14:31 [facility] (Rec: 07/03/25 14:36 [facility] [id number]) Rehab OT IP Assessment Subjective History Pt oriented x 2 on arrival. Pt agreeable to engage in therapy evaluation. Pt admitted to [facility] on 07/01/25 due to cellulitis. History and physical: Patient is a 75-year-old female with past medical history of CKD stage III, chronic venous insufficiency of bilateral legs who presents to the hospital due to left leg pain and bilateral leg swelling for past 2 to 3 days patient is very hard of hearing, according to the patient she has not seen any physicians lately for quite some time. Patient mentions she has chronic swelling of her legs due to her venous issues however her legs are more swollen than normal and painful due to associated redness on her left leg. Patient otherwise denied fevers chills diarrhea constipation dysuria. On further evaluation in the emergency department patient had CTA bilateral legs which was negative for any arterial blockage. Subjective Pt reports she lives with her daughter and granddaughter in a single-story home with 0 JESSIE. Pt reports she is able to complete functional transfers with a RW at baseline. She does have a wheelchair at home if needed Pt claims she is usually independent with ADLs such as dressing, bathing, and feeding. Pt is dependent upon family for completion of all IADLS . Pt reports she has not had any falls in the past 6 months. Objective Patient Orientation Person,Birthday Right Upper Min Limitation <25% Extremity Gross ROM Left Upper Extremity Min Limitation <25% Gross ROM Shoulder ROM Muscle Weakness Limitations Elbow ROM Muscle Weakness Limitations Wrist Limitations of Muscle Weakness Range of Motion Bed Mobility bed mobility-scooting,bed mobility - supine/sit Assist Level Moderate x 2 (50% assist) Rehab OT IP prob,goals,plan Problems Date of Evaluation: 07/03/25 OT IP Problems Bed Mobility,Transfers,Balance,Self care,Safety Rehab Potential Rehab Potential Good Equipment Needs Assistive Devices Rolling / Wheeled Walker Plan OT intervention Plan Bed Mobility,Transfers,Balance,Self care,Safety, Therapeutic Exercise OT Plan Frequency Daily Duration LOS Discharge Goals Bed Mobility Ability Assistance x1 Sit to Stand Chair Moderate x 1 (50% assist) Transfer Ability Chair Transfer Moderate x 1 (50% assist) Ability Chair Transfer Stand Step Pivot Technique Chair Transfer Rolling Walker Assistive Devices Lower Body Dressing Moderate Assistance Ability Upper Body Dressing Minimal Assistance Ability Performing Toilet Moderate Assistance Hygiene Ability Overall Commode/ Minimal Assistance,Moderate Assistance Toilet Transfer Ability Commode/Toilet Sit to/from Ambulatory Transfer Technique Discharge Plan OT Discharge Plan Pt will continue to be seen for OT services while at [facility]. At this time, therapist would recommend short term rehab at SNF due to functional decline. Continued skilled therapy is important in order for patient to improve strength, safety, endurance, ADL independence, and functional transfers to reach PLOF. Eval Complexity Eval Charge Codes 83311 - Moderate Complexity PHYSICIAN CERTIFICATION: I certify the specified therapy services for Pushpa Schneider are required, authorized, and reviewed every 30 days.
--- NOTE | 2025-07-04 08:55 | PC.NURSE ---
Wound culture results forwarded to hospitalist.
== END 2025-07-03 15:58 ==
LOC: ER 21:53 → 2ND 22:04
PROVIDERS: Internal Medicine; Physician Assistant; Admitting Provider Internal Medicine Adolescent Medicine; Emergency Provider Student in an Organized Health Care Education/Training Program; Visit Provider Internal Medicine Adolescent Medicine
DX: L03.116 Cellulitis of left lower limb (principal); I13.0 Hypertensive heart and chronic kidney disease with heart failure and stage 1 through stage 4 chronic kidney disease, or unspecified chronic kidney disease; N18.31 Chronic kidney disease, stage 3a; L97.929 Non-pressure chronic ulcer of unspecified part of left lower leg with unspecified severity; L97.919 Non-pressure chronic ulcer of unspecified part of right lower leg with unspecified severity; I87.2 Venous insufficiency (chronic) (peripheral); I50.30 Unspecified diastolic (congestive) heart failure; E66.01 Morbid (severe) obesity due to excess calories; R91.8 Other nonspecific abnormal finding of lung field; M85.80 Other specified disorders of bone density and structure, unspecified site; K80.20 Calculus of gallbladder without cholecystitis without obstruction; Z78.9 Other specified health status; Z68.41 Body mass index [BMI] 40.0-44.9, adult
CPT/HCPCS: 36415; 73590; 73600; 75635; 76882; 80048; 80053; 83605; 83735; 83880; 85025; 85651; 86140; 86803; 87040; 87070; 87077; 87186; 87205; 87389; 96365; 96366; 96367; 96372; 96375; 96376; 97162; 97166; 99285; G0378; G0432; J1644; J1650; J1939; J2543; J3373; J7040; J7050; Q9967

== ENCOUNTER 2025-07-07 06:07 | Outpatient (CLI) | payer MEDICARE, MEDICAID, SELFPAY ==
[2025-07-07 07:07] LABS: Free T4 (Free Thyroxine) 1.37 ng/dl (0.78-2.19)
[2025-07-07 07:21] LABS: Thyroid Stimulating Hormone 3.10 uIU/mL (0.465-4.68)
== END 2025-07-07 23:59 | disposition home or self-care (01) ==
PROVIDERS: PCP Family Medicine; Visit Provider Family Medicine
DX: Z79.899 Other long term (current) drug therapy (principal)
CPT/HCPCS: 36415; 84439; 84443

== ENCOUNTER 2025-07-24 16:54 | Outpatient (CLI) | payer MEDICARE, MEDICAID, SELFPAY ==
[2025-07-24 18:07] LABS: Coronavirus 19, PCR Not Detected (NotDetected); Influenza A, PCR Not Detected (NotDetected); Influenza B, PCR Not Detected (NotDetected)
== END 2025-07-24 23:59 | disposition home or self-care (01) ==
LOC: LAB.DROPOF 16:57
PROVIDERS: PCP Family Medicine; Visit Provider Family Medicine
DX: J18.9 Pneumonia, unspecified organism (principal); R09.89 Other specified symptoms and signs involving the circulatory and respiratory systems
CPT/HCPCS: 87631